=== PATIENT | male | born 1930 | race Caucasian/White ===

== ENCOUNTER 2018-05-04 15:02 | Inpatient (IN) | payer MEDICARE, OTHER, MEDICAID ==
[2018-05-04 15:39] LABS: ADD MAN DIFF? NO
[2018-05-04 15:44] LABS: WHITE BLOOD COUNT 16.7 10^3/ul (4.8-10.8)
[2018-05-04 15:44] LABS: BASOPHIL # 0.1 10^3/ul (0.0-0.1); BASOPHILS % 0.8 % (0.0-2.0); EOSINOPHILS # 0.2 10^3/ul (0.0-0.5); EOSINOPHILS % 1.3 % (0.0-7.0); HEMATOCRIT 40.5 % (42.0-52.0); HEMOGLOBIN 12.7 g/dl (14.0-18.0); LYMPHOCYTES # 1.3 10^3/ul (0.8-2.9); LYMPHOCYTES % 7.9 % (15.0-51.0); MEAN CORPUSCULAR HEMOGLOBIN 30.5 pg (29.0-33.0); MEAN CORPUSCULAR HGB CONC 31.4 g/dl (32.0-37.0); MEAN CORPUSCULAR VOLUME 97.1 fl (82.0-101.0); MEAN PLATELET VOLUME 11.8 fl (7.4-10.4); MONOCYTE # 1.2 10^3/ul (0.3-0.9); MONOCYTES % 7.2 % (0.0-11.0); NEUTROPHIL # 13.6 10^3/ul (1.6-7.5); NEUTROPHILS % 81.3 % (39.0-77.0); PLATELET COUNT 378 10^3/UL (140-415); RED BLOOD COUNT 4.17 10^6/ul (4.70-6.10); RED CELL DISTRIBUTION WIDTH 14.3 % (11.5-14.5)
[2018-05-04] MEDS: SOD CHLORIDE 0.9% 500 ML IV (16:00)
[2018-05-04 16:02] LABS: ALANINE AMINOTRANSFERASE 43 IU/L (13-69); ALBUMIN 3.5 g/dl (3.3-4.9); ALKALINE PHOSPHATASE 100 IU/L (42-121); ANION GAP 12 (5-13); ASPARTATE AMINO TRANSFERASE 64 IU/L (15-46); BILIRUBIN,INDIRECT 0.2 mg/dl (0-1.1); BILIRUBIN,TOTAL 0.2 mg/dl (0.2-1.3); CALCIUM 9.2 mg/dl (8.4-10.2); CARBON DIOXIDE 26 mmol/L (21-31); CHLORIDE 121 mmol/L (97-110); CREATININE 5.41 mg/dl (0.61-1.24); GLUCOSE 295 mg/dl (70-220); POTASSIUM 4.7 mmol/L (3.5-5.1); SODIUM 159 mmol/L (135-144)
[2018-05-04 16:10] LABS: BLOOD UREA NITROGEN 144 mg/dl (7-20)
[2018-05-04] MEDS: SODIUM CHLORIDE 0.9% 1L BAG IV* (17:12)
[2018-05-04] MEDS: CEFEPIME 2GM/50 ML (PMX) 50 ML IVPB (17:54)
[2018-05-04 17:59] LABS: ADD UMIC YES; UR ASCORBIC ACID 40 mg/dL (NEGATIVE); UR BACTERIA MANY /HPF (NONE SEEN); UR BILIRUBIN (Dip) NEGATIVE (NEGATIVE); UR BLOOD (Dip) 3+ mg/dL (NEGATIVE); UR CLARITY TURBID (CLEAR); UR COLOR YELLOW (YELLOW); UR GLUCOSE (Dip) NEGATIVE (NEGATIVE); UR KETONES (Dip) NEGATIVE (NEGATIVE); UR LEUKOCYTE ESTERASE (Dip) 3+ Leu/ul (NEGATIVE); UR NITRITE (Dip) NEGATIVE (NEGATIVE); UR RBC 142 /HPF (0-5); UR SPECIFIC GRAVITY (Dip) 1.012 (1.003-1.030); UR SQUAMOUS EPITHELIAL CELL FEW /HPF (FEW); UR TOTAL PROTEIN (Dip) 2+ mg/dl (NEGATIVE); UR UROBILINOGEN (Dip) NEGATIVE (NEGATIVE); UR WBC > 182 /HPF (0-5)
[2018-05-04] MEDS: VANCOMYCIN 1 GM (PMX) 250 ML IVPB (18:00)
[2018-05-04] MEDS: SOD CHLORIDE 0.9% 1,000 ML IV (18:12)
[2018-05-04] MEDS ORDERED: ONDANSETRON 4 MG INJ IV ×2 (18:30)
[2018-05-04] MEDS ORDERED: NACL 0.9% 3 ML SYG IV (18:30)
[2018-05-04] MEDS ORDERED: ACETAMINOPHEN 325 MG TAB PO (18:30)
[2018-05-04] MEDS ORDERED: ACETAMINOPHEN 650 MG SUPP PR (18:30)
[2018-05-04] MEDS ORDERED: hydrALAzine 20 MG INJ IV (19:00)
[2018-05-04] MEDS ORDERED: GLUCOSE GEL 15 GRAM TUBE PO ×2 (19:30)
[2018-05-04] MEDS ORDERED: GLUCAGON 1 MG INJ IM (19:30)
[2018-05-04] MEDS ORDERED: GLUCOSE GEL 15 GRAM TUBE BUCCAL (19:30)
[2018-05-04] MEDS ORDERED: DEXTROSE 50% 50 ML SYRINGE IV ×2 (19:30)
[2018-05-04] MEDS ORDERED: HEPARIN 5,000 UNIT/1 ML VIAL SC (21:00)
[2018-05-04] MEDS ORDERED: CEFEPIME 2GM/50 ML (PMX) 50 ML IVPB (21:00)
[2018-05-04] MEDS: INSULIN ASPART [NOVOLOG] 3 ML PEN SC (22:08)
[2018-05-05 00:05] LABS: LACTIC ACID 2.4 mmol/L (0.5-2.0)
[2018-05-05] MEDS: DEXTROSE 5% 1,000 ML IV ×4 (00:22→22:46)
[2018-05-05] MEDS: INSULIN ASPART [NOVOLOG] 3 ML PEN SC ×6 (02:13→20:46)
[2018-05-05 05:41] LABS: ADD MAN DIFF? NO
[2018-05-05 05:43] LABS: WHITE BLOOD COUNT 20.8 10^3/ul (4.8-10.8)
[2018-05-05 05:43] LABS: ABNORMAL IP MESSAGE 1; BASOPHIL # 0.1 10^3/ul (0.0-0.1); BASOPHILS % 0.4 % (0.0-2.0); EOSINOPHILS # 0.1 10^3/ul (0.0-0.5); EOSINOPHILS % 0.3 % (0.0-7.0); HEMATOCRIT 40.2 % (42.0-52.0); HEMOGLOBIN 12.5 g/dl (14.0-18.0); LYMPHOCYTES % 4.6 % (15.0-51.0); MEAN CORPUSCULAR HEMOGLOBIN 30.6 pg (29.0-33.0); MEAN CORPUSCULAR HGB CONC 31.1 g/dl (32.0-37.0); MEAN CORPUSCULAR VOLUME 98.3 fl (82.0-101.0); MONOCYTE # 1.5 10^3/ul (0.3-0.9); MONOCYTES % 7.3 % (0.0-11.0); NEUTROPHIL # 17.6 10^3/ul (1.6-7.5); NEUTROPHILS % 85.1 % (39.0-77.0); PLATELET COUNT 364 10^3/UL (140-415); POSITIVE DIFF @See below; RED BLOOD COUNT 4.09 10^6/ul (4.70-6.10); RED CELL DISTRIBUTION WIDTH 14.4 % (11.5-14.5)
[2018-05-05 06:27] LABS: ALANINE AMINOTRANSFERASE 39 IU/L (13-69); ALBUMIN 3.2 g/dl (3.3-4.9); ALBUMIN/GLOBULIN RATIO 0.96; ALKALINE PHOSPHATASE 92 IU/L (42-121); ANION GAP 9 (5-13); ASPARTATE AMINO TRANSFERASE 70 IU/L (15-46); BILIRUBIN,INDIRECT 0.2 mg/dl (0-1.1); BILIRUBIN,TOTAL 0.2 mg/dl (0.2-1.3); CALCIUM 8.9 mg/dl (8.4-10.2); CARBON DIOXIDE 24 mmol/L (21-31); CHLORIDE 125 mmol/L (97-110); CREATININE 5.12 mg/dl (0.61-1.24); GLUCOSE 300 mg/dl (70-220); MAGNESIUM 2.5 mg/dl (1.7-2.5); POTASSIUM 4.5 mmol/L (3.5-5.1); SODIUM 158 mmol/L (135-144); TOTAL PROTEIN 6.5 g/dl (6.1-8.1)
[2018-05-05] MEDS: PANTOPRAZOLE 40 MG INJ IV (06:40)
[2018-05-05 07:14] LABS: BLOOD UREA NITROGEN 144 mg/dl (7-20)
[2018-05-05 08:51] LABS: HEMOGLOBIN A1C 6.5 % (0-5.9)
[2018-05-05] MEDS ORDERED: ENOXAPARIN 30 MG/0.3 ML SYG SC (09:00)
[2018-05-05 10:47] LABS: OSMOLALITY 387 mOsm/kg (280-295)
[2018-05-05 10:56] LABS: ADD UMIC YES; UR ASCORBIC ACID 40 mg/dL (NEGATIVE); UR BACTERIA FEW /HPF (NONE SEEN); UR BILIRUBIN (Dip) NEGATIVE (NEGATIVE); UR BLOOD (Dip) 2+ mg/dL (NEGATIVE); UR BUDDING YEAST FEW /HPF (NONE SEEN); UR CLARITY TURBID (CLEAR); UR COLOR YELLOW (YELLOW); UR GLUCOSE (Dip) 1+ mg/dL (NEGATIVE); UR KETONES (Dip) NEGATIVE (NEGATIVE); UR LEUKOCYTE ESTERASE (Dip) 3+ Leu/ul (NEGATIVE); UR MUCUS FEW /HPF (NONE SEEN); UR NITRITE (Dip) NEGATIVE (NEGATIVE); UR NONSQUAMOUS EPITHELIAL CELL 6 /HPF (NONE SEEN); UR RBC 91 /HPF (0-5); UR SPECIFIC GRAVITY (Dip) 1.017 (1.003-1.030); UR TOTAL PROTEIN (Dip) 2+ mg/dl (NEGATIVE); UR UROBILINOGEN (Dip) NEGATIVE (NEGATIVE); UR WBC > 182 /HPF (0-5)
[2018-05-05 11:15] LABS: SODIUM,URINE RANDOM 18 mmol/L (30-90)
[2018-05-05 11:17] LABS: POTASSIUM,URINE RANDOM 58.2 mmol/L (25-125)
[2018-05-05] MEDS: INSULIN GLARGINE [LANTus] (100 UNITS/ML) SYG SC (11:22)
[2018-05-05 11:49] LABS: OSMOLALITY,URINE 447 mOsm/kg (250-1200)
[2018-05-05] MEDS ORDERED: VANCOMYCIN IV PER PHARMACY XX (13:30)
[2018-05-05] MEDS: CEFEPIME 1GM/50 ML IVPB (17:41)
[2018-05-05] MEDS: morphine SULFATE/PF (2 MG/2 ML) SYG IV (23:32)
[2018-05-06] MEDS: INSULIN ASPART [NOVOLOG] 3 ML PEN SC ×3 (02:20→08:40)
[2018-05-06] MEDS ORDERED: LORAZEPAM 4 MG/ML VIAL (05:05)
[2018-05-06] MEDS: LORAZEPAM 4 MG/ML VIAL IV ×2 (05:40→20:17)
[2018-05-06] MEDS: HALOPERIDOL 5 MG INJ IM (05:41)
[2018-05-06 05:53] LABS: ADD MAN DIFF? NO
[2018-05-06] MEDS: PANTOPRAZOLE 40 MG INJ IV (05:58)
[2018-05-06 06:00] LABS: ABNORMAL IP MESSAGE 1; BASOPHIL # 0.2 10^3/ul (0.0-0.1); BASOPHILS % 0.6 % (0.0-2.0); EOSINOPHILS # 0.3 10^3/ul (0.0-0.5); EOSINOPHILS % 1.3 % (0.0-7.0); HEMATOCRIT 35.7 % (42.0-52.0); HEMOGLOBIN 11.3 g/dl (14.0-18.0); LYMPHOCYTES # 1.5 10^3/ul (0.8-2.9); LYMPHOCYTES % 6.2 % (15.0-51.0); MEAN CORPUSCULAR HEMOGLOBIN 30.6 pg (29.0-33.0); MEAN CORPUSCULAR HGB CONC 31.7 g/dl (32.0-37.0); MEAN CORPUSCULAR VOLUME 96.7 fl (82.0-101.0); MEAN PLATELET VOLUME 12.2 fl (7.4-10.4); MONOCYTE # 1.3 10^3/ul (0.3-0.9); MONOCYTES % 5.4 % (0.0-11.0); NEUTROPHIL # 20.8 10^3/ul (1.6-7.5); NEUTROPHILS % 83.7 % (39.0-77.0); PLATELET COUNT 326 10^3/UL (140-415); POSITIVE DIFF @See below; RED BLOOD COUNT 3.69 10^6/ul (4.70-6.10); RED CELL DISTRIBUTION WIDTH 14.7 % (11.5-14.5)
[2018-05-06 06:00] LABS: WHITE BLOOD COUNT 24.8 10^3/ul (4.8-10.8)
[2018-05-06 06:08] LABS: AADO2 Arterial 189.4 mmHg (7.0-24.0); Allen Test ACCEPTAB; Arterial Blood Gas Oxygen Sat 98.7 mmHG (95.0-100.0); Arterial COHb 0.2 % (0.0-3.0); Arterial Fraction of Oxyhgb 98.3 % (93.0-99.0); Arterial HCO3 19.7 mmol/L (22.0-26.0); Arterial MetHb 0.2 % (0.0-1.5); Arterial pCO2 31.7 mmhg (35-45); MODE MASK - SIMPLE; Site Left Radial
[2018-05-06 06:20] LABS: VANCOMYCIN,RANDOM 7.5 ug/ml
[2018-05-06 06:23] LABS: ALBUMIN 3.1 g/dl (3.3-4.9); ANION GAP 13 (5-13); CALCIUM 8.8 mg/dl (8.4-10.2); CARBON DIOXIDE 25 mmol/L (21-31); CHLORIDE 117 mmol/L (97-110); CREATININE 4.05 mg/dl (0.61-1.24); GLUCOSE 223 mg/dl (70-220); MAGNESIUM 2.6 mg/dl (1.7-2.5); POTASSIUM 3.8 mmol/L (3.5-5.1); SODIUM 155 mmol/L (135-144)
[2018-05-06 06:43] LABS: BLOOD UREA NITROGEN 135 mg/dl (7-20)
[2018-05-06] MEDS: DEXTROSE 5% 1,000 ML IV ×2 (08:36→20:24)
[2018-05-06] MEDS: INSULIN GLARGINE [LANTus] (100 UNITS/ML) SYG SC (08:40)
[2018-05-06] MEDS ORDERED: VANCOMYCIN 1 GM 250 ML IVPB (09:00)
[2018-05-06] MEDS: Insulin NOVOLOG SS MODERATE Algorithm(NPO/TPN/ENTERAL FEEDS) SC ×4 (09:00→20:34)
[2018-05-06] MEDS: CEFEPIME 2GM/50 ML IVPB (10:11)
[2018-05-06] MEDS: VANCOMYCIN 1 GM 250 ML IVPB (11:13)
[2018-05-06] MEDS ORDERED: INSULIN ASPART [NOVOLOG] 3 ML PEN SC (13:00)
[2018-05-06] MEDS: CEFTRIAXONE 1 GM/50 ML (PMX) 50 ML IVPB (14:15)
[2018-05-06] MEDS: BALSAM PERU/CASTOR OIL 60 GM TUBE TOP (14:15)
[2018-05-06] MEDS: COLLAGENASE 5 GM (UD JAR) TOP (14:15)
[2018-05-06] MEDS ORDERED: LORAZEPAM 2 MG INJ IV (20:00)
[2018-05-07] MEDS: Insulin NOVOLOG SS MODERATE Algorithm(NPO/TPN/ENTERAL FEEDS) SC ×6 (01:57→21:00)
[2018-05-07] MEDS: METHYLPREDNISOLONE 125 MG INJ IV (03:16)
[2018-05-07] MEDS: DEXTROSE 5% 1,000 ML IV ×2 (03:16→12:42)
[2018-05-07 04:54] LABS: ADD MAN DIFF? NO
[2018-05-07 04:59] LABS: WHITE BLOOD COUNT 20.8 10^3/ul (4.8-10.8)
[2018-05-07 04:59] LABS: BASOPHIL # 0.1 10^3/ul (0.0-0.1); BASOPHILS % 0.6 % (0.0-2.0); EOSINOPHILS # 0.4 10^3/ul (0.0-0.5); HEMATOCRIT 33.8 % (42.0-52.0); HEMOGLOBIN 10.9 g/dl (14.0-18.0); LYMPHOCYTES # 1.2 10^3/ul (0.8-2.9); LYMPHOCYTES % 5.8 % (15.0-51.0); MEAN CORPUSCULAR HEMOGLOBIN 31.1 pg (29.0-33.0); MEAN CORPUSCULAR HGB CONC 32.2 g/dl (32.0-37.0); MEAN CORPUSCULAR VOLUME 96.3 fl (82.0-101.0); MONOCYTE # 0.7 10^3/ul (0.3-0.9); MONOCYTES % 3.6 % (0.0-11.0); NEUTROPHIL # 17.6 10^3/ul (1.6-7.5); NEUTROPHILS % 84.5 % (39.0-77.0); PLATELET COUNT 308 10^3/UL (140-415); RED BLOOD COUNT 3.51 10^6/ul (4.70-6.10); RED CELL DISTRIBUTION WIDTH 14.6 % (11.5-14.5)
[2018-05-07 05:20] LABS: ANION GAP 6 (5-13); BLOOD UREA NITROGEN 115 mg/dl (7-20); CALCIUM 8.6 mg/dl (8.4-10.2); CARBON DIOXIDE 24 mmol/L (21-31); CHLORIDE 122 mmol/L (97-110); CREATININE 2.69 mg/dl (0.61-1.24); GLUCOSE 181 mg/dl (70-220); MAGNESIUM 2.3 mg/dl (1.7-2.5); PHOSPHORUS 4.2 mg/dl (2.5-4.9); POTASSIUM 3.7 mmol/L (3.5-5.1); SODIUM 152 mmol/L (135-144)
[2018-05-07] MEDS: PANTOPRAZOLE 40 MG INJ IV (06:19)
[2018-05-07] MEDS: BALSAM PERU/CASTOR OIL 60 GM TUBE TOP (08:26)
[2018-05-07] MEDS: COLLAGENASE 5 GM (UD JAR) TOP (08:26)
[2018-05-07] MEDS: INSULIN GLARGINE [LANTus] (100 UNITS/ML) SYG SC (08:31)
[2018-05-07] MEDS: CEFTRIAXONE 1 GM/50 ML (PMX) 50 ML IVPB (12:34)
[2018-05-07] MEDS: ALBUTEROL/IPRATROPIUM (NEB) 3 ML AMP HHN ×2 (12:53→20:39)
[2018-05-07] MEDS: LORAZEPAM 4 MG/ML VIAL IV (20:42)
[2018-05-07] MEDS: HALOPERIDOL 5 MG INJ IM (23:53)
[2018-05-08] MEDS: Insulin NOVOLOG SS MODERATE Algorithm(NPO/TPN/ENTERAL FEEDS) SC ×6 (01:00→21:03)
[2018-05-08] MEDS: DEXTROSE 5% 1,000 ML IV ×3 (02:30→12:30)
[2018-05-08] MEDS: PANTOPRAZOLE 40 MG INJ IV (05:35)
[2018-05-08] MEDS: ALBUTEROL/IPRATROPIUM (NEB) 3 ML AMP HHN ×3 (08:22→20:34)
[2018-05-08] MEDS: COLLAGENASE 5 GM (UD JAR) TOP (08:41)
[2018-05-08] MEDS: BALSAM PERU/CASTOR OIL 60 GM TUBE TOP (08:47)
[2018-05-08] MEDS: INSULIN GLARGINE [LANTus] (100 UNITS/ML) SYG SC (08:54)
[2018-05-08] MEDS: LIDOCAINE 1% (MPF) 5 ML VIAL SC (11:30)
[2018-05-08 12:47] LABS: ADD MAN DIFF? NO
[2018-05-08 12:52] LABS: BASOPHIL # 0.1 10^3/ul (0.0-0.1); BASOPHILS % 0.3 % (0.0-2.0); EOSINOPHILS % 0.1 % (0.0-7.0); HEMATOCRIT 36.6 % (42.0-52.0); HEMOGLOBIN 11.6 g/dl (14.0-18.0); LYMPHOCYTES # 1.3 10^3/ul (0.8-2.9); LYMPHOCYTES % 6.4 % (15.0-51.0); MEAN CORPUSCULAR HEMOGLOBIN 30.4 pg (29.0-33.0); MEAN CORPUSCULAR HGB CONC 31.7 g/dl (32.0-37.0); MEAN CORPUSCULAR VOLUME 96.1 fl (82.0-101.0); MONOCYTE # 1.3 10^3/ul (0.3-0.9); MONOCYTES % 6.9 % (0.0-11.0); NEUTROPHIL # 15.9 10^3/ul (1.6-7.5); NEUTROPHILS % 81.8 % (39.0-77.0); PLATELET COUNT 397 10^3/UL (140-415); RED BLOOD COUNT 3.81 10^6/ul (4.70-6.10); RED CELL DISTRIBUTION WIDTH 14.8 % (11.5-14.5)
[2018-05-08 12:52] LABS: WHITE BLOOD COUNT 19.5 10^3/ul (4.8-10.8)
[2018-05-08 13:08] LABS: AMMONIA 12 umol/l (9-30)
[2018-05-08 13:09] LABS: ALANINE AMINOTRANSFERASE 58 IU/L (13-69); ALBUMIN 3.2 g/dl (3.3-4.9); ALBUMIN/GLOBULIN RATIO 0.96; ALKALINE PHOSPHATASE 91 IU/L (42-121); ANION GAP 12 (5-13); ASPARTATE AMINO TRANSFERASE 73 IU/L (15-46); BILIRUBIN,INDIRECT 0.1 mg/dl (0-1.1); BILIRUBIN,TOTAL 0.1 mg/dl (0.2-1.3); BLOOD UREA NITROGEN 86 mg/dl (7-20); CALCIUM 9.2 mg/dl (8.4-10.2); CARBON DIOXIDE 25 mmol/L (21-31); CHLORIDE 121 mmol/L (97-110); CREATININE 1.93 mg/dl (0.61-1.24); GLUCOSE 194 mg/dl (70-220); MAGNESIUM 2.2 mg/dl (1.7-2.5); POTASSIUM 3.6 mmol/L (3.5-5.1); SODIUM 158 mmol/L (135-144); TOTAL PROTEIN 6.5 g/dl (6.1-8.1)
[2018-05-08] MEDS: CEFTRIAXONE 1 GM/50 ML (PMX) 50 ML IVPB (15:15)
[2018-05-09] MEDS: DEXTROSE 5% 1,000 ML IV ×3 (01:07→15:42)
[2018-05-09] MEDS: Insulin NOVOLOG SS MODERATE Algorithm(NPO/TPN/ENTERAL FEEDS) SC ×3 (01:14→08:43)
[2018-05-09 05:38] LABS: ADD MAN DIFF? NO
[2018-05-09] MEDS: PANTOPRAZOLE 40 MG INJ IV (05:43)
[2018-05-09 05:45] LABS: BASOPHIL # 0.1 10^3/ul (0.0-0.1); BASOPHILS % 0.6 % (0.0-2.0); EOSINOPHILS # 0.2 10^3/ul (0.0-0.5); HEMATOCRIT 36.8 % (42.0-52.0); HEMOGLOBIN 11.6 g/dl (14.0-18.0); LYMPHOCYTES # 1.5 10^3/ul (0.8-2.9); LYMPHOCYTES % 9.4 % (15.0-51.0); MEAN CORPUSCULAR HEMOGLOBIN 30.9 pg (29.0-33.0); MEAN CORPUSCULAR HGB CONC 31.5 g/dl (32.0-37.0); MEAN CORPUSCULAR VOLUME 98.1 fl (82.0-101.0); MEAN PLATELET VOLUME 12.5 fl (7.4-10.4); MONOCYTE # 1.2 10^3/ul (0.3-0.9); MONOCYTES % 7.2 % (0.0-11.0); NEUTROPHIL # 12.3 10^3/ul (1.6-7.5); NEUTROPHILS % 77.2 % (39.0-77.0); PLATELET COUNT 345 10^3/UL (140-415); RED BLOOD COUNT 3.75 10^6/ul (4.70-6.10); RED CELL DISTRIBUTION WIDTH 14.6 % (11.5-14.5)
[2018-05-09 05:45] LABS: WHITE BLOOD COUNT 15.9 10^3/ul (4.8-10.8)
[2018-05-09 06:05] LABS: ANION GAP 14 (5-13); BLOOD UREA NITROGEN 79 mg/dl (7-20); CALCIUM 9.3 mg/dl (8.4-10.2); CARBON DIOXIDE 24 mmol/L (21-31); CHLORIDE 122 mmol/L (97-110); CREATININE 1.77 mg/dl (0.61-1.24); GLUCOSE 192 mg/dl (70-220); MAGNESIUM 2.1 mg/dl (1.7-2.5); PHOSPHORUS 3.9 mg/dl (2.5-4.9); SODIUM 160 mmol/L (135-144)
[2018-05-09] MEDS: ALBUTEROL/IPRATROPIUM (NEB) 3 ML AMP HHN ×3 (08:17→20:05)
[2018-05-09] MEDS: BALSAM PERU/CASTOR OIL 60 GM TUBE TOP (08:38)
[2018-05-09] MEDS: COLLAGENASE 5 GM (UD JAR) TOP (08:38)
[2018-05-09] MEDS: INSULIN GLARGINE [LANTus] (100 UNITS/ML) SYG SC ×2 (08:42→20:57)
[2018-05-09] MEDS: CEFTRIAXONE 1 GM/50 ML (PMX) 50 ML IVPB (11:19)
[2018-05-09] MEDS: INSULIN ASPART [NOVOLOG] 3 ML PEN SC ×2 (17:40→21:02)
[2018-05-09 20:38] LABS: SODIUM 148 mmol/L (135-144)
[2018-05-10] MEDS: INSULIN ASPART [NOVOLOG] 3 ML PEN SC ×6 (01:23→20:24)
[2018-05-10] MEDS: DEXTROSE 5% 1,000 ML IV ×4 (02:53→20:57)
[2018-05-10] MEDS: PANTOPRAZOLE 40 MG INJ IV (05:21)
[2018-05-10 05:35] LABS: ADD MAN DIFF? NO
[2018-05-10 05:45] LABS: ABNORMAL IP MESSAGE 1; BASOPHIL # 0.1 10^3/ul (0.0-0.1); BASOPHILS % 0.7 % (0.0-2.0); EOSINOPHILS # 0.4 10^3/ul (0.0-0.5); EOSINOPHILS % 2.3 % (0.0-7.0); LYMPHOCYTES # 1.5 10^3/ul (0.8-2.9); LYMPHOCYTES % 8.9 % (15.0-51.0); MEAN CORPUSCULAR HEMOGLOBIN 30.6 pg (29.0-33.0); MEAN CORPUSCULAR HGB CONC 32.4 g/dl (32.0-37.0); MEAN CORPUSCULAR VOLUME 94.7 fl (82.0-101.0); MEAN PLATELET VOLUME 12.1 fl (7.4-10.4); MONOCYTES % 5.8 % (0.0-11.0); NEUTROPHIL # 12.3 10^3/ul (1.6-7.5); NEUTROPHILS % 74.1 % (39.0-77.0); PLATELET COUNT 352 10^3/UL (140-415); POSITIVE DIFF @See below; RED BLOOD COUNT 3.59 10^6/ul (4.70-6.10); RED CELL DISTRIBUTION WIDTH 14.6 % (11.5-14.5)
[2018-05-10 05:45] LABS: WHITE BLOOD COUNT 16.6 10^3/ul (4.8-10.8)
[2018-05-10 05:58] LABS: AMMONIA 14 umol/l (9-30)
[2018-05-10 06:05] LABS: ANION GAP 11 (5-13); BLOOD UREA NITROGEN 64 mg/dl (7-20); CALCIUM 8.2 mg/dl (8.4-10.2); CARBON DIOXIDE 24 mmol/L (21-31); CHLORIDE 115 mmol/L (97-110); CREATININE 1.43 mg/dl (0.61-1.24); GLUCOSE 205 mg/dl (70-220); MAGNESIUM 1.7 mg/dl (1.7-2.5); PHOSPHORUS 3.1 mg/dl (2.5-4.9); POTASSIUM 3.7 mmol/L (3.5-5.1); SODIUM 150 mmol/L (135-144)
[2018-05-10 06:55] LABS: ANISOCYTOSIS 1+ (0-0); BAND NEUTROPHILS #M 0.3 10^3/ul (0.0-0.6); BAND NEUTROPHILS % (M) 2 % (0-4); BURR CELLS 1+ (0-0); EOSINOPHILS % (M) 2 % (0-7); LYMPHOCYTES #M 0.4 10^3/ul (0.8-2.9); LYMPHOCYTES % (M) 3 % (15-51); MICROCYTOSIS 1+ (0-0); MONOCYTE #M 1.3 10^3/ul (0.3-0.9); MONOCYTES % (M) 8 % (0-11); MYELOCYTES #M 0.6 10^3/ul (0.0-0.0); MYELOCYTES % (M) 4 % (0-0); PLATELET ESTIMATE NORMAL; PLATELET MORPHOLOGY COMMENT @See below; POIKILOCYTOSIS 1+ (0-0); POLYCHROMASIA 2+ (0-0); PROMYELOCYTES #M 0.1 10^3/ul (0-0); PROMYELOCYTES % (M) 1 % (0-0); REACTIVE LYMPHOCYTES #M 0.4 10^3/ul (0.0-0.0); REACTIVE LYMPHOCYTES% (M) 3 % (0-0); SEG NEUT #M 12.8 10^3/ul (1.6-7.5); SEGMENTED NEUTROPHILS (M) % 77 % (39-77); SMUDGE%M 2 % (0-0)
[2018-05-10] MEDS: COLLAGENASE 5 GM (UD JAR) TOP (08:38)
[2018-05-10] MEDS: BALSAM PERU/CASTOR OIL 60 GM TUBE TOP (08:39)
[2018-05-10] MEDS: ALBUTEROL/IPRATROPIUM (NEB) 3 ML AMP HHN ×3 (09:13→21:15)
[2018-05-10] MEDS: INSULIN GLARGINE [LANTus] (100 UNITS/ML) SYG SC ×2 (09:59→20:24)
[2018-05-10] MEDS: CEFTRIAXONE 1 GM/50 ML (PMX) 50 ML IVPB (11:47)
[2018-05-11] MEDS: INSULIN ASPART [NOVOLOG] 3 ML PEN SC ×6 (01:39→20:58)
[2018-05-11] MEDS: DEXTROSE 5% 1,000 ML IV ×2 (02:39→17:25)
[2018-05-11] MEDS: HALOPERIDOL 5 MG INJ IM (05:20)
[2018-05-11] MEDS: PANTOPRAZOLE 40 MG INJ IV (05:20)
[2018-05-11 06:23] LABS: WHITE BLOOD COUNT 22.9 10^3/ul (4.8-10.8)
[2018-05-11 06:23] LABS: ABNORMAL IP MESSAGE 1; HEMATOCRIT 35.9 % (42.0-52.0); HEMOGLOBIN 11.6 g/dl (14.0-18.0); MEAN CORPUSCULAR HEMOGLOBIN 30.3 pg (29.0-33.0); MEAN CORPUSCULAR HGB CONC 32.3 g/dl (32.0-37.0); MEAN CORPUSCULAR VOLUME 93.7 fl (82.0-101.0); MEAN PLATELET VOLUME 12.1 fl (7.4-10.4); NUCLEATED RED BLOOD CELLS% 0.1 /100WBC (0.0-0.0); PLATELET COUNT 352 10^3/UL (140-415); POSITIVE DIFF @See below; RED BLOOD COUNT 3.83 10^6/ul (4.70-6.10); RED CELL DISTRIBUTION WIDTH 14.4 % (11.5-14.5)
[2018-05-11 06:30] LABS: ADD MAN DIFF? YES
[2018-05-11 06:44] LABS: ANION GAP 13 (5-13); BLOOD UREA NITROGEN 54 mg/dl (7-20); CALCIUM 7.8 mg/dl (8.4-10.2); CARBON DIOXIDE 23 mmol/L (21-31); CHLORIDE 109 mmol/L (97-110); GLUCOSE 181 mg/dl (70-220); MAGNESIUM 1.7 mg/dl (1.7-2.5); PHOSPHORUS 2.7 mg/dl (2.5-4.9); POTASSIUM 3.3 mmol/L (3.5-5.1); SODIUM 145 mmol/L (135-144)
[2018-05-11 07:42] LABS: ANISOCYTOSIS 1+ (0-0); BAND NEUTROPHILS #M 0.9 10^3/ul (0.0-0.6); BAND NEUTROPHILS % (M) 4 % (0-4); BURR CELLS 1+ (0-0); EOSINOPHILS % (M) 1 % (0-7); ERYTHROBLAST% (NRBC) (M) 1 % (0-0); GIANT THROMBO% (M) 1 % (0-0); LYMPHOCYTES #M 2.5 10^3/ul (0.8-2.9); LYMPHOCYTES % (M) 11 % (15-51); METAMYELOCYTES #M 0.6 10^3/ul (0.0-0.0); METAMYELOCYTES %M 3 % (0-0); MICROCYTOSIS 1+ (0-0); MONOCYTE #M 0.9 10^3/ul (0.3-0.9); MONOCYTES % (M) 4 % (0-11); MYELOCYTES #M 1.6 10^3/ul (0.0-0.0); MYELOCYTES % (M) 7 % (0-0); PLATELET ESTIMATE NORMAL; POIKILOCYTOSIS 3+ (0-0); POLYCHROMASIA 2+ (0-0); REACTIVE LYMPHOCYTES #M 0.2 10^3/ul (0.0-0.0); REACTIVE LYMPHOCYTES% (M) 1 % (0-0); SEGMENTED NEUTROPHILS (M) % 69 % (39-77); SMUDGE%M 8 % (0-0); TEAR DROP CELLS 1+ (0-0)
[2018-05-11] MEDS: POTASSIUM CHLORIDE 20 MEQ POWDER FOR ORAL SOLN PO (07:51)
[2018-05-11] MEDS: ALBUTEROL/IPRATROPIUM (NEB) 3 ML AMP HHN ×3 (08:48→19:40)
[2018-05-11] MEDS: COLLAGENASE 5 GM (UD JAR) TOP (09:11)
[2018-05-11] MEDS: BALSAM PERU/CASTOR OIL 60 GM TUBE TOP (09:11)
[2018-05-11] MEDS: INSULIN GLARGINE [LANTus] (100 UNITS/ML) SYG SC ×3 (09:19→21:06)
[2018-05-11] MEDS: CEFTRIAXONE 1 GM/50 ML (PMX) 50 ML IVPB (11:34)
[2018-05-12] MEDS: INSULIN ASPART [NOVOLOG] 3 ML PEN SC ×6 (00:53→21:10)
[2018-05-12] MEDS: HALOPERIDOL 5 MG INJ IM (04:25)
[2018-05-12] MEDS: PANTOPRAZOLE 40 MG INJ IV (05:34)
[2018-05-12 05:36] LABS: ABNORMAL IP MESSAGE 1; HEMOGLOBIN 11.7 g/dl (14.0-18.0); MEAN CORPUSCULAR HEMOGLOBIN 30.9 pg (29.0-33.0); MEAN CORPUSCULAR HGB CONC 33.4 g/dl (32.0-37.0); MEAN CORPUSCULAR VOLUME 92.3 fl (82.0-101.0); MEAN PLATELET VOLUME 12.2 fl (7.4-10.4); NUCLEATED RED BLOOD CELLS% 0.1 /100WBC (0.0-0.0); PLATELET COUNT 352 10^3/UL (140-415); POSITIVE DIFF @See below; RED BLOOD COUNT 3.79 10^6/ul (4.70-6.10); RED CELL DISTRIBUTION WIDTH 14.7 % (11.5-14.5)
[2018-05-12 05:36] LABS: WHITE BLOOD COUNT 30.3 10^3/ul (4.8-10.8)
[2018-05-12] MEDS: ALBUTEROL/IPRATROPIUM (NEB) 3 ML AMP HHN ×4 (05:48→21:19)
[2018-05-12 05:52] LABS: ADD MAN DIFF? YES
[2018-05-12 06:10] LABS: ANION GAP 10 (5-13); BLOOD UREA NITROGEN 60 mg/dl (7-20); CALCIUM 7.9 mg/dl (8.4-10.2); CARBON DIOXIDE 22 mmol/L (21-31); CHLORIDE 108 mmol/L (97-110); CREATININE 1.63 mg/dl (0.61-1.24); GLUCOSE 206 mg/dl (70-220); MAGNESIUM 1.7 mg/dl (1.7-2.5); PHOSPHORUS 3.2 mg/dl (2.5-4.9); POTASSIUM 3.6 mmol/L (3.5-5.1); SODIUM 140 mmol/L (135-144)
[2018-05-12] MEDS: INSULIN GLARGINE [LANTus] (100 UNITS/ML) SYG SC ×2 (07:34→21:09)
[2018-05-12 08:15] LABS: ANISOCYTOSIS 1+ (0-0); BAND NEUTROPHILS #M 1.8 10^3/ul (0.0-0.6); BAND NEUTROPHILS % (M) 6 % (0-4); BASOPHIL #M 0.3 10^3/ul (0.0-0.0); BASOPHILS % (M) 1 % (0-2); BURR CELLS 1+ (0-0); EOSINOPHILS % (M) 3 % (0-7); ERYTHROBLAST% (NRBC) (M) 1 % (0-0); GIANT THROMBO% (M) 3 % (0-0); LYMPHOCYTES #M 2.7 10^3/ul (0.8-2.9); LYMPHOCYTES % (M) 9 % (15-51); METAMYELOCYTES #M 0.6 10^3/ul (0.0-0.0); METAMYELOCYTES %M 2 % (0-0); MONOCYTE #M 0.6 10^3/ul (0.3-0.9); MONOCYTES % (M) 2 % (0-11); MYELOCYTES #M 0.6 10^3/ul (0.0-0.0); MYELOCYTES % (M) 2 % (0-0); PLATELET ESTIMATE NORMAL; POIKILOCYTOSIS 2+ (0-0); POLYCHROMASIA 1+ (0-0); PROMYELOCYTES #M 0.3 10^3/ul (0-0); PROMYELOCYTES % (M) 1 % (0-0); REACTIVE LYMPHOCYTES #M 0.3 10^3/ul (0.0-0.0); REACTIVE LYMPHOCYTES% (M) 1 % (0-0); SEG NEUT #M 22.7 10^3/ul (1.6-7.5); SEGMENTED NEUTROPHILS (M) % 73 % (39-77); SMUDGE%M 3 % (0-0)
[2018-05-12] MEDS: DEXTROSE 5% 1,000 ML IV (08:25)
[2018-05-12] MEDS: COLLAGENASE 5 GM (UD JAR) TOP (08:53)
[2018-05-12] MEDS: BALSAM PERU/CASTOR OIL 60 GM TUBE TOP (08:53)
[2018-05-12] MEDS: CEFTRIAXONE 1 GM/50 ML (PMX) 50 ML IVPB (11:56)
[2018-05-12] MEDS ORDERED: VANCOMYCIN IV PER PHARMACY XX (12:30)
[2018-05-12] MEDS: MEROPENEM 500MG/50 ML (PMX) 50 ML IVPB ×2 (14:52→21:12)
[2018-05-12] MEDS: VANCOMYCIN 1.5 GM in SOD CHLORIDE 0.9% 250 ML IVPB (15:26)
[2018-05-12] MEDS: metroNIDAZOLE 500 MG TAB NGT ×2 (15:26→21:13)
[2018-05-12] MEDS: AMIODARONE 200 MG TAB PO (21:13)
[2018-05-12] MEDS: MEMANTINE 5 MG TAB PO (21:14)
[2018-05-13] MEDS: INSULIN ASPART [NOVOLOG] 3 ML PEN SC ×5 (01:15→17:53)
[2018-05-13 06:00] LABS: ANION GAP 11 (5-13); BLOOD UREA NITROGEN 92 mg/dl (7-20); CALCIUM 7.5 mg/dl (8.4-10.2); CARBON DIOXIDE 19 mmol/L (21-31); CHLORIDE 105 mmol/L (97-110); CREATININE 2.41 mg/dl (0.61-1.24); GLUCOSE 149 mg/dl (70-220); MAGNESIUM 1.8 mg/dl (1.7-2.5); PHOSPHORUS 3.9 mg/dl (2.5-4.9); POTASSIUM 4.3 mmol/L (3.5-5.1); SODIUM 135 mmol/L (135-144)
[2018-05-13 06:14] LABS: ABNORMAL IP MESSAGE 1; HEMATOCRIT 34.1 % (42.0-52.0); HEMOGLOBIN 11.5 g/dl (14.0-18.0); MEAN CORPUSCULAR HEMOGLOBIN 30.5 pg (29.0-33.0); MEAN CORPUSCULAR HGB CONC 33.7 g/dl (32.0-37.0); MEAN CORPUSCULAR VOLUME 90.5 fl (82.0-101.0); MEAN PLATELET VOLUME 13.3 fl (7.4-10.4); NUCLEATED RED BLOOD CELLS% 0.1 /100WBC (0.0-0.0); PLATELET COUNT 225 10^3/UL (140-415); POSITIVE DIFF @See below; RED BLOOD COUNT 3.77 10^6/ul (4.70-6.10); RED CELL DISTRIBUTION WIDTH 14.9 % (11.5-14.5)
[2018-05-13 06:14] LABS: WHITE BLOOD COUNT 38.9 10^3/ul (4.8-10.8)
[2018-05-13] MEDS: PANTOPRAZOLE 40 MG INJ IV (06:14)
[2018-05-13] MEDS: metroNIDAZOLE 500 MG TAB NGT (06:15)
[2018-05-13 06:23] LABS: ADD MAN DIFF? YES
[2018-05-13] MEDS: SOD CHLORIDE 0.9% 1,000 ML IV ×2 (07:36→09:34)
[2018-05-13] MEDS: MEROPENEM 500MG/50 ML (PMX) 50 ML IVPB ×2 (08:56→21:03)
[2018-05-13] MEDS: BALSAM PERU/CASTOR OIL 60 GM TUBE TOP (09:00)
[2018-05-13] MEDS ORDERED: VITAMIN A & D 5 GM OINT PACKET TOP (09:07)
[2018-05-13] MEDS: COLLAGENASE 5 GM (UD JAR) TOP (09:23)
[2018-05-13] MEDS: ALBUTEROL/IPRATROPIUM (NEB) 3 ML AMP HHN ×3 (09:36→20:02)
[2018-05-13 09:45] LABS: ANISOCYTOSIS 1+ (0-0); BAND NEUTROPHILS #M 3.1 10^3/ul (0.0-0.6); BAND NEUTROPHILS % (M) 8 % (0-4); BURR CELLS 1+ (0-0); GIANT THROMBO% (M) 1 % (0-0); LYMPHOCYTES #M 1.9 10^3/ul (0.8-2.9); LYMPHOCYTES % (M) 5 % (15-51); MICROCYTOSIS 1+ (0-0); MONOCYTE #M 1.1 10^3/ul (0.3-0.9); MONOCYTES % (M) 3 % (0-11); MYELOCYTES #M 2.3 10^3/ul (0.0-0.0); MYELOCYTES % (M) 6 % (0-0); PLATELET ESTIMATE NORMAL; POIKILOCYTOSIS 2+ (0-0); POLYCHROMASIA 2+ (0-0); PROMYELOCYTES #M 0.3 10^3/ul (0-0); PROMYELOCYTES % (M) 1 % (0-0); SEG NEUT #M 31.2 10^3/ul (1.6-7.5); SEGMENTED NEUTROPHILS (M) % 77 % (39-77); SMUDGE%M 5 % (0-0)
[2018-05-13] MEDS: INSULIN GLARGINE [LANTus] (100 UNITS/ML) SYG SC ×2 (13:24→20:58)
[2018-05-13] MEDS: MEMANTINE 5 MG TAB PO ×2 (14:37→20:50)
[2018-05-13] MEDS: ASPIRIN 81 MG TAB PO (14:37)
[2018-05-13] MEDS: AMIODARONE 200 MG TAB PO ×2 (14:38→20:51)
[2018-05-13] MEDS: VANCOMYCIN 750 MG (PMX) 250 ML IVPB (14:38)
[2018-05-14] MEDS: INSULIN ASPART [NOVOLOG] 3 ML PEN SC ×4 (01:32→17:12)
[2018-05-14] MEDS: HYDROmorphONE 1 MG/ML SYG IV ×2 (02:21→20:19)
[2018-05-14 05:16] LABS: ABNORMAL IP MESSAGE 1; HEMATOCRIT 28.5 % (42.0-52.0); HEMOGLOBIN 9.4 g/dl (14.0-18.0); MEAN CORPUSCULAR HEMOGLOBIN 30.2 pg (29.0-33.0); MEAN CORPUSCULAR VOLUME 91.6 fl (82.0-101.0); MEAN PLATELET VOLUME 12.1 fl (7.4-10.4); PLATELET COUNT 295 10^3/UL (140-415); POSITIVE DIFF @See below; RED BLOOD COUNT 3.11 10^6/ul (4.70-6.10); RED CELL DISTRIBUTION WIDTH 14.8 % (11.5-14.5)
[2018-05-14 05:16] LABS: WHITE BLOOD COUNT 21.6 10^3/ul (4.8-10.8)
[2018-05-14 05:45] LABS: ALBUMIN 2.3 g/dl (3.3-4.9); ANION GAP 10 (5-13); BLOOD UREA NITROGEN 87 mg/dl (7-20); CALCIUM 7.4 mg/dl (8.4-10.2); CARBON DIOXIDE 21 mmol/L (21-31); CHLORIDE 111 mmol/L (97-110); CREATININE 2.02 mg/dl (0.61-1.24); GLUCOSE 114 mg/dl (70-220); MAGNESIUM 1.9 mg/dl (1.7-2.5); PHOSPHORUS 4.4 mg/dl (2.5-4.9); POTASSIUM 3.1 mmol/L (3.5-5.1); SODIUM 142 mmol/L (135-144)
[2018-05-14 05:50] LABS: ADD MAN DIFF? YES
[2018-05-14] MEDS: PANTOPRAZOLE 40 MG INJ IV (05:55)
[2018-05-14] MEDS: ALBUTEROL/IPRATROPIUM (NEB) 3 ML AMP HHN ×3 (07:45→21:45)
[2018-05-14] MEDS: MEMANTINE 5 MG TAB PO ×2 (07:59→21:31)
[2018-05-14] MEDS: COLLAGENASE 5 GM (UD JAR) TOP (08:00)
[2018-05-14] MEDS: AMIODARONE 200 MG TAB PO ×2 (08:00→21:31)
[2018-05-14] MEDS: ASPIRIN 81 MG TAB PO (08:00)
[2018-05-14] MEDS: BALSAM PERU/CASTOR OIL 60 GM TUBE TOP (08:00)
[2018-05-14] MEDS: INSULIN GLARGINE [LANTus] (100 UNITS/ML) SYG SC ×2 (08:05→21:38)
[2018-05-14 09:25] LABS: ANISOCYTOSIS 2+ (0-0); BAND NEUTROPHILS #M 1.2 10^3/ul (0.0-0.6); BAND NEUTROPHILS % (M) 6 % (0-4); BASOPHIL #M 0.2 10^3/ul (0.0-0.0); BASOPHILS % (M) 1 % (0-2); BURR CELLS 1+ (0-0); GIANT THROMBO% (M) 1 % (0-0); LYMPHOCYTES #M 1.7 10^3/ul (0.8-2.9); LYMPHOCYTES % (M) 8 % (15-51); METAMYELOCYTES #M 0.2 10^3/ul (0.0-0.0); METAMYELOCYTES %M 1 % (0-0); MICROCYTOSIS 1+ (0-0); MONOCYTE #M 1.5 10^3/ul (0.3-0.9); MONOCYTES % (M) 7 % (0-11); MYELOCYTES #M 0.4 10^3/ul (0.0-0.0); MYELOCYTES % (M) 2 % (0-0); PLATELET ESTIMATE NORMAL; POIKILOCYTOSIS 2+ (0-0); POLYCHROMASIA 3+ (0-0); SEG NEUT #M 16.5 10^3/ul (1.6-7.5); SEGMENTED NEUTROPHILS (M) % 75 % (39-77); SMUDGE%M 1 % (0-0)
[2018-05-14] MEDS: POTASSIUM CHLORIDE 20 MEQ POWDER FOR ORAL SOLN NGT (09:50)
[2018-05-14] MEDS: MEROPENEM 500MG/50 ML (PMX) 50 ML IVPB ×2 (09:50→21:31)
[2018-05-14] MEDS: POTASSIUM CHLORIDE 100 ML IVPB ×2 (09:53→10:44)
[2018-05-14] MEDS: 1/2 NS + KCL 20 MEQ 1,000 ML IV ×2 (10:44→23:50)
[2018-05-15] MEDS: INSULIN ASPART [NOVOLOG] 3 ML PEN SC ×5 (00:33→23:45)
[2018-05-15] MEDS: HYDROmorphONE 1 MG/ML SYG IV ×3 (03:45→20:10)
[2018-05-15] MEDS: 1/2 NS + KCL 20 MEQ 1,000 ML IV ×3 (03:45→19:18)
[2018-05-15] MEDS: PANTOPRAZOLE 40 MG INJ IV (05:44)
[2018-05-15 06:12] LABS: WHITE BLOOD COUNT 12.1 10^3/ul (4.8-10.8)
[2018-05-15 06:12] LABS: ABNORMAL IP MESSAGE 1; HEMATOCRIT 28.2 % (42.0-52.0); HEMOGLOBIN 9.1 g/dl (14.0-18.0); MEAN CORPUSCULAR HEMOGLOBIN 30.2 pg (29.0-33.0); MEAN CORPUSCULAR HGB CONC 32.3 g/dl (32.0-37.0); MEAN CORPUSCULAR VOLUME 93.7 fl (82.0-101.0); MEAN PLATELET VOLUME 11.7 fl (7.4-10.4); PLATELET COUNT 322 10^3/UL (140-415); POSITIVE DIFF @See below; RED BLOOD COUNT 3.01 10^6/ul (4.70-6.10); RED CELL DISTRIBUTION WIDTH 14.9 % (11.5-14.5)
[2018-05-15 06:32] LABS: ALBUMIN 2.3 g/dl (3.3-4.9); ANION GAP 4 (5-13); BLOOD UREA NITROGEN 54 mg/dl (7-20); CALCIUM 7.6 mg/dl (8.4-10.2); CARBON DIOXIDE 23 mmol/L (21-31); CHLORIDE 118 mmol/L (97-110); CREATININE 1.09 mg/dl (0.61-1.24); GLUCOSE 127 mg/dl (70-220); MAGNESIUM 1.8 mg/dl (1.7-2.5); PHOSPHORUS 2.7 mg/dl (2.5-4.9); POTASSIUM 3.9 mmol/L (3.5-5.1); SODIUM 145 mmol/L (135-144)
[2018-05-15 06:44] LABS: ADD MAN DIFF? YES
[2018-05-15] MEDS: ALBUTEROL/IPRATROPIUM (NEB) 3 ML AMP HHN ×3 (08:00→20:51)
[2018-05-15] MEDS: BALSAM PERU/CASTOR OIL 60 GM TUBE TOP (08:13)
[2018-05-15] MEDS: COLLAGENASE 5 GM (UD JAR) TOP (08:13)
[2018-05-15] MEDS: ASPIRIN 81 MG TAB PO (08:14)
[2018-05-15] MEDS: AMIODARONE 200 MG TAB PO ×2 (08:14→20:07)
[2018-05-15] MEDS: MEMANTINE 5 MG TAB PO ×2 (08:14→20:07)
[2018-05-15] MEDS: INSULIN GLARGINE [LANTus] (100 UNITS/ML) SYG SC ×2 (08:17→20:28)
[2018-05-15 09:32] LABS: ANISOCYTOSIS 1+ (0-0); BAND NEUTROPHILS #M 0.4 10^3/ul (0.0-0.6); BAND NEUTROPHILS % (M) 4 % (0-4); EOSINOPHILS % (M) 1 % (0-7); GIANT THROMBO% (M) 1 % (0-0); LYMPHOCYTES #M 0.8 10^3/ul (0.8-2.9); LYMPHOCYTES % (M) 7 % (15-51); METAMYELOCYTES #M 0.2 10^3/ul (0.0-0.0); METAMYELOCYTES %M 2 % (0-0); MICROCYTOSIS 1+ (0-0); MONOCYTE #M 0.4 10^3/ul (0.3-0.9); MONOCYTES % (M) 4 % (0-11); MYELOCYTES #M 0.7 10^3/ul (0.0-0.0); MYELOCYTES % (M) 6 % (0-0); PLATELET ESTIMATE NORMAL; POLYCHROMASIA 1+ (0-0); REACTIVE LYMPHOCYTES #M 0.1 10^3/ul (0.0-0.0); REACTIVE LYMPHOCYTES% (M) 1 % (0-0); SEG NEUT #M 9.1 10^3/ul (1.6-7.5); SEGMENTED NEUTROPHILS (M) % 75 % (39-77); SMUDGE%M 4 % (0-0)
[2018-05-15] MEDS: MEROPENEM 500MG/50 ML (PMX) 50 ML IVPB ×2 (10:07→20:07)
[2018-05-15] MEDS: VANCOMYCIN 750 MG (PMX) 250 ML IVPB (14:18)
[2018-05-16] MEDS: HALOPERIDOL 5 MG INJ IM (00:35)
[2018-05-16] MEDS: HYDROmorphONE 0.5 MG/0.5 ML SYG IV (00:36)
[2018-05-16] MEDS: HYDROmorphONE 1 MG/ML SYG IV ×3 (03:13→14:34)
[2018-05-16] MEDS: PANTOPRAZOLE 40 MG INJ IV (05:36)
[2018-05-16 05:39] LABS: ADD MAN DIFF? NO
[2018-05-16 05:41] LABS: BASOPHIL # 0.1 10^3/ul (0.0-0.1); BASOPHILS % 0.5 % (0.0-2.0); EOSINOPHILS # 0.3 10^3/ul (0.0-0.5); EOSINOPHILS % 1.9 % (0.0-7.0); HEMATOCRIT 27.8 % (42.0-52.0); HEMOGLOBIN 9.1 g/dl (14.0-18.0); LYMPHOCYTES # 1.4 10^3/ul (0.8-2.9); LYMPHOCYTES % 10.7 % (15.0-51.0); MEAN CORPUSCULAR HEMOGLOBIN 30.7 pg (29.0-33.0); MEAN CORPUSCULAR HGB CONC 32.7 g/dl (32.0-37.0); MEAN CORPUSCULAR VOLUME 93.9 fl (82.0-101.0); MEAN PLATELET VOLUME 11.4 fl (7.4-10.4); MONOCYTE # 1.3 10^3/ul (0.3-0.9); MONOCYTES % 9.6 % (0.0-11.0); NEUTROPHIL # 9.5 10^3/ul (1.6-7.5); NEUTROPHILS % 72.7 % (39.0-77.0); PLATELET COUNT 333 10^3/UL (140-415); RED BLOOD COUNT 2.96 10^6/ul (4.70-6.10); RED CELL DISTRIBUTION WIDTH 15.2 % (11.5-14.5)
[2018-05-16 05:41] LABS: WHITE BLOOD COUNT 13.1 10^3/ul (4.8-10.8)
[2018-05-16] MEDS: INSULIN ASPART [NOVOLOG] 3 ML PEN SC ×4 (05:41→23:38)
[2018-05-16 06:06] LABS: ALBUMIN 2.3 g/dl (3.3-4.9); ANION GAP 5 (5-13); BLOOD UREA NITROGEN 38 mg/dl (7-20); CALCIUM 7.4 mg/dl (8.4-10.2); CARBON DIOXIDE 23 mmol/L (21-31); CHLORIDE 119 mmol/L (97-110); CREATININE 0.88 mg/dl (0.61-1.24); GLUCOSE 148 mg/dl (70-220); MAGNESIUM 1.7 mg/dl (1.7-2.5); PHOSPHORUS 2.2 mg/dl (2.5-4.9); POTASSIUM 4.2 mmol/L (3.5-5.1); SODIUM 147 mmol/L (135-144)
[2018-05-16] MEDS: ALBUTEROL/IPRATROPIUM (NEB) 3 ML AMP HHN ×3 (08:21→20:22)
[2018-05-16] MEDS: MEMANTINE 5 MG TAB PO ×2 (08:42→21:07)
[2018-05-16] MEDS: ASPIRIN 81 MG TAB PO (08:42)
[2018-05-16] MEDS: AMIODARONE 200 MG TAB PO ×2 (08:42→21:07)
[2018-05-16] MEDS: MEROPENEM 500MG/50 ML (PMX) 50 ML IVPB ×2 (08:42→21:08)
[2018-05-16] MEDS: COLLAGENASE 5 GM (UD JAR) TOP (08:42)
[2018-05-16] MEDS: BALSAM PERU/CASTOR OIL 60 GM TUBE TOP (08:44)
[2018-05-16] MEDS: INSULIN GLARGINE [LANTus] (100 UNITS/ML) SYG SC ×2 (10:11→21:21)
[2018-05-16] MEDS: 1/2 NS + KCL 20 MEQ 1,000 ML IV (13:06)
[2018-05-16 13:47] LABS: PROCALCITONIN 1.86 ng/mL (<0.10)
[2018-05-16] MEDS ORDERED: RISPERIDONE (1 MG/ML PO SYG) PO (15:30)
[2018-05-16] MEDS: RISPERIDONE (1 MG/ML PO SYG) NGT ×2 (15:30→21:07)
[2018-05-16] MEDS: VALPROIC ACID LIQUID CUP 250 MG/5 ML CUP PO (21:06)
[2018-05-16] MEDS: QUETIAPINE 25 MG TAB NGT (21:06)
[2018-05-17] MEDS: PANTOPRAZOLE 40 MG INJ IV (05:46)
[2018-05-17 05:50] LABS: ADD MAN DIFF? NO
[2018-05-17 05:51] LABS: WHITE BLOOD COUNT 11.9 10^3/ul (4.8-10.8)
[2018-05-17 05:51] LABS: ABNORMAL IP MESSAGE 1; BASOPHIL # 0.1 10^3/ul (0.0-0.1); BASOPHILS % 0.4 % (0.0-2.0); EOSINOPHILS # 0.3 10^3/ul (0.0-0.5); EOSINOPHILS % 2.4 % (0.0-7.0); HEMATOCRIT 28.2 % (42.0-52.0); HEMOGLOBIN 8.9 g/dl (14.0-18.0); LYMPHOCYTES # 1.3 10^3/ul (0.8-2.9); MEAN CORPUSCULAR HEMOGLOBIN 29.7 pg (29.0-33.0); MEAN CORPUSCULAR HGB CONC 31.6 g/dl (32.0-37.0); MEAN PLATELET VOLUME 11.1 fl (7.4-10.4); MONOCYTES % 8.7 % (0.0-11.0); NEUTROPHIL # 8.6 10^3/ul (1.6-7.5); NEUTROPHILS % 72.4 % (39.0-77.0); PLATELET COUNT 342 10^3/UL (140-415); POSITIVE DIFF @See below
[2018-05-17] MEDS: INSULIN ASPART [NOVOLOG] 3 ML PEN SC ×3 (05:56→17:31)
[2018-05-17 06:31] LABS: ANION GAP 4 (5-13); BLOOD UREA NITROGEN 24 mg/dl (7-20); CALCIUM 7.6 mg/dl (8.4-10.2); CARBON DIOXIDE 24 mmol/L (21-31); CHLORIDE 118 mmol/L (97-110); GLUCOSE 137 mg/dl (70-220); MAGNESIUM 1.6 mg/dl (1.7-2.5); PHOSPHORUS 2.3 mg/dl (2.5-4.9); SODIUM 146 mmol/L (135-144)
[2018-05-17 06:34] LABS: POTASSIUM 4.2 mmol/L (3.5-5.1)
[2018-05-17 08:18] LABS: ANISOCYTOSIS 1+ (0-0); BAND NEUTROPHILS #M 0.9 10^3/ul (0.0-0.6); BAND NEUTROPHILS % (M) 8 % (0-4); LYMPHOCYTES #M 2.1 10^3/ul (0.8-2.9); LYMPHOCYTES % (M) 18 % (15-51); MICROCYTOSIS 1+ (0-0); MONOCYTE #M 0.2 10^3/ul (0.3-0.9); MONOCYTES % (M) 2 % (0-11); MYELOCYTES #M 0.5 10^3/ul (0.0-0.0); MYELOCYTES % (M) 5 % (0-0); PLATELET ESTIMATE NORMAL; POLYCHROMASIA 2+ (0-0); REACTIVE LYMPHOCYTES #M 0.1 10^3/ul (0.0-0.0); REACTIVE LYMPHOCYTES% (M) 1 % (0-0); SEGMENTED NEUTROPHILS (M) % 66 % (39-77); SMUDGE%M 6 % (0-0)
[2018-05-17] MEDS: ALBUTEROL/IPRATROPIUM (NEB) 3 ML AMP HHN ×2 (08:20→13:37)
[2018-05-17] MEDS: COLLAGENASE 5 GM (UD JAR) TOP (09:00)
[2018-05-17] MEDS: MEROPENEM 500MG/50 ML (PMX) 50 ML IVPB (09:00)
[2018-05-17] MEDS: RISPERIDONE (1 MG/ML PO SYG) NGT (09:01)
[2018-05-17] MEDS: ASPIRIN 81 MG TAB PO (09:01)
[2018-05-17] MEDS: VALPROIC ACID LIQUID CUP 250 MG/5 ML CUP PO (09:01)
[2018-05-17] MEDS: MEMANTINE 5 MG TAB PO (09:01)
[2018-05-17] MEDS: BALSAM PERU/CASTOR OIL 60 GM TUBE TOP (09:02)
[2018-05-17] MEDS: AMIODARONE 200 MG TAB PO (09:02)
[2018-05-17] MEDS: INSULIN GLARGINE [LANTus] (100 UNITS/ML) SYG SC (09:19)
[2018-05-17 15:39] LABS: VANCOMYCIN,TROUGH < 5.0 ug/ml (10.0-20.0)
[2018-05-17] MEDS: VANCOMYCIN 750 MG (PMX) 250 ML IVPB (15:47)
[2018-05-18] MEDS ORDERED: VANCOMYCIN 1 GM 250 ML IVPB (10:00)
== END 2018-05-17 20:43 | DRG 871 ==
LOC: E/R 15:02 → 6WM 18:12
DX: A41.9 Sepsis, unspecified organism (principal); G92 Toxic encephalopathy; L89.323 Pressure ulcer of left buttock, stage 3; L89.313 Pressure ulcer of right buttock, stage 3; N17.9 Acute kidney failure, unspecified; E87.0 Hyperosmolality and hypernatremia; N39.0 Urinary tract infection, site not specified; E87.2 Acidosis; K56.7 Ileus, unspecified; N13.8 Other obstructive and reflux uropathy; E86.0 Dehydration; G30.9 Alzheimer's disease, unspecified; F02.80 Dementia in other diseases classified elsewhere, unspecified severity, without behavioral disturbance, psychotic disturbance, mood disturbance, and anxiety; E11.9 Type 2 diabetes mellitus without complications; I48.91 Unspecified atrial fibrillation; I10 Essential (primary) hypertension; F29 Unspecified psychosis not due to a substance or known physiological condition; R65.20 Severe sepsis without septic shock; R31.9 Hematuria, unspecified; J44.9 Chronic obstructive pulmonary disease, unspecified; B96.20 Unspecified Escherichia coli [E. coli] as the cause of diseases classified elsewhere; E87.6 Hypokalemia; K52.9 Noninfective gastroenteritis and colitis, unspecified; N40.1 Benign prostatic hyperplasia with lower urinary tract symptoms; L89.620 Pressure ulcer of left heel, unstageable; L89.610 Pressure ulcer of right heel, unstageable
CPT/HCPCS: 36415; 36600; 70450; 71045; 74176; 76775; 80048; 80053; 80069; 80202; 81001; 82140; 82540; 82803; 82962; 83036; 83605; 83735; 83930; 83935; 84100; 84133; 84145; 84295; 84300; 84443; 85025; 86850; 86900; 86901; 87040; 87075; 87081; 87086; 90686; 92526; 92610; 93306; 94640; 94664; 96374; 96375; 99285-25

== ENCOUNTER 2018-07-05 16:13 | Day surgery (SDC) | payer OTHER, MEDICARE ==
[2018-07-05 17:53] LABS: ADD MAN DIFF? NO
[2018-07-05 17:54] LABS: BASOPHILS % 0.1 % (0.0-2.0); HEMATOCRIT 41.9 % (42.0-52.0); HEMOGLOBIN 12.8 g/dl (14.0-18.0); LYMPHOCYTES # 0.9 10^3/ul (0.8-2.9); LYMPHOCYTES % 12.7 % (15.0-51.0); MEAN CORPUSCULAR HEMOGLOBIN 28.5 pg (29.0-33.0); MEAN CORPUSCULAR HGB CONC 30.5 g/dl (32.0-37.0); MEAN CORPUSCULAR VOLUME 93.3 fl (82.0-101.0); MEAN PLATELET VOLUME 10.8 fl (7.4-10.4); MONOCYTE # 0.5 10^3/ul (0.3-0.9); MONOCYTES % 6.3 % (0.0-11.0); NEUTROPHIL # 5.9 10^3/ul (1.6-7.5); NEUTROPHILS % 79.6 % (39.0-77.0); PLATELET COUNT 294 10^3/UL (140-415); RED BLOOD COUNT 4.49 10^6/ul (4.70-6.10); RED CELL DISTRIBUTION WIDTH 16.2 % (11.5-14.5)
[2018-07-05 17:54] LABS: WHITE BLOOD COUNT 7.4 10^3/ul (4.8-10.8)
[2018-07-05 18:14] LABS: INR 1.06; PARTIAL THROMBOPLASTIN TIME 25.7 Sec (23.0-35.0); PROTIME 13.9 Sec (11.9-14.9); PT RATIO 1.1
[2018-07-05 18:15] LABS: ALANINE AMINOTRANSFERASE 22 IU/L (13-69); ALBUMIN/GLOBULIN RATIO 0.96; ALKALINE PHOSPHATASE 70 IU/L (42-121); ANION GAP 9 (5-13); ASPARTATE AMINO TRANSFERASE 17 IU/L (15-46); BILIRUBIN,INDIRECT 0.4 mg/dl (0-1.1); BILIRUBIN,TOTAL 0.4 mg/dl (0.2-1.3); BLOOD UREA NITROGEN 24 mg/dl (7-20); CALCIUM 8.8 mg/dl (8.4-10.2); CARBON DIOXIDE 23 mmol/L (21-31); CHLORIDE 104 mmol/L (97-110); CREATININE 0.48 mg/dl (0.61-1.24); GLUCOSE 128 mg/dl (70-220); POTASSIUM 4.5 mmol/L (3.5-5.1); SODIUM 136 mmol/L (135-144); TOTAL PROTEIN 6.1 g/dl (6.1-8.1)
[2018-07-05] MEDS ORDERED: MIDAZOLAM 1 MG/ML 2 ML INJ (18:17)
[2018-07-05] MEDS ORDERED: LABETALOL HCL 20MG INJ IV (18:30)
[2018-07-05] MEDS ORDERED: IPRATROPIUM (NEB) 0.5 MG/2.5 ML AMP HHN (18:30)
[2018-07-05] MEDS ORDERED: ALBUTEROL 0.083% (NEB) 2.5 MG/3 ML AMP HHN (18:30)
[2018-07-05] MEDS ORDERED: DIPHENHYDRAMINE 50 MG INJ IV (18:30)
[2018-07-05] MEDS ORDERED: EPHEDrine SULFATE 50 MG/5 ML SYG IV (18:30)
[2018-07-05] MEDS ORDERED: LORAZEPAM 2 MG INJ IV (18:30)
[2018-07-05] MEDS ORDERED: FENTAnyl 50 MCG/ML VIAL IV (18:30)
[2018-07-05] MEDS ORDERED: ONDANSETRON 4 MG INJ IV (18:30)
[2018-07-05] MEDS ORDERED: METOCLOPRAMIDE 10 MG INJ IV (18:30)
[2018-07-05] MEDS ORDERED: morphine (1 MG/ML) 10ML SYRINGE IV (18:30)
[2018-07-05] MEDS ORDERED: hydrALAzine 20 MG INJ IV (18:30)
[2018-07-05] MEDS ORDERED: PROPOFOL 20 ML (18:33)
[2018-07-05] MEDS ORDERED: CEFAZOLIN 1 GM/50 ML (PMX) 50 ML IVPB (18:58)
== END 2018-07-05 20:45 ==
LOC: GIL 16:13
DX: R13.14 Dysphagia, pharyngoesophageal phase (principal); E11.9 Type 2 diabetes mellitus without complications; I12.9 Hypertensive chronic kidney disease with stage 1 through stage 4 chronic kidney disease, or unspecified chronic kidney disease; N18.9 Chronic kidney disease, unspecified; I73.9 Peripheral vascular disease, unspecified; G30.9 Alzheimer's disease, unspecified; F02.80 Dementia in other diseases classified elsewhere, unspecified severity, without behavioral disturbance, psychotic disturbance, mood disturbance, and anxiety; J44.9 Chronic obstructive pulmonary disease, unspecified; I48.91 Unspecified atrial fibrillation
CPT/HCPCS: 43246; 80053; 85025; 85610; 85730

== ENCOUNTER 2018-08-15 19:55 | Inpatient (IN) | payer MEDICARE, OTHER ==
[2018-08-15] MEDS: SODIUM CHLORIDE 0.9% 1L BAG IV* (20:23)
[2018-08-15 20:29] LABS: ABNORMAL IP MESSAGE 1; HEMATOCRIT 36.8 % (42.0-52.0); HEMOGLOBIN 11.3 g/dl (14.0-18.0); MEAN CORPUSCULAR HEMOGLOBIN 27.8 pg (29.0-33.0); MEAN CORPUSCULAR HGB CONC 30.7 g/dl (32.0-37.0); MEAN CORPUSCULAR VOLUME 90.6 fl (82.0-101.0); MEAN PLATELET VOLUME 11.1 fl (7.4-10.4); PLATELET COUNT 481 10^3/UL (140-415); POSITIVE DIFF @See below; RED BLOOD COUNT 4.06 10^6/ul (4.70-6.10); RED CELL DISTRIBUTION WIDTH 16.4 % (11.5-14.5)
[2018-08-15 20:29] LABS: WHITE BLOOD COUNT 20.3 10^3/ul (4.8-10.8)
[2018-08-15 20:32] LABS: ADD MAN DIFF? YES
[2018-08-15] MEDS: ACETAMINOPHEN 650MG/20.3ML CUP NGT (20:35)
[2018-08-15] MEDS: CEFEPIME 2GM/50 ML (PMX) 50 ML IVPB (20:35)
[2018-08-15 20:54] LABS: ALANINE AMINOTRANSFERASE 15 IU/L (13-69); ALBUMIN 2.9 g/dl (3.3-4.9); ALBUMIN/GLOBULIN RATIO 0.78; ALKALINE PHOSPHATASE 86 IU/L (42-121); ANION GAP 4 (5-13); ASPARTATE AMINO TRANSFERASE 23 IU/L (15-46); BILIRUBIN,INDIRECT 0.4 mg/dl (0-1.1); BILIRUBIN,TOTAL 0.4 mg/dl (0.2-1.3); BLOOD UREA NITROGEN 26 mg/dl (7-20); CALCIUM 8.6 mg/dl (8.4-10.2); CARBON DIOXIDE 29 mmol/L (21-31); CHLORIDE 115 mmol/L (97-110); CREATININE 0.58 mg/dl (0.61-1.24); GLUCOSE 219 mg/dl (70-220); SODIUM 148 mmol/L (135-144); TOTAL PROTEIN 6.6 g/dl (6.1-8.1)
[2018-08-15] MEDS: VANCOMYCIN 1 GM (PMX) 250 ML IVPB (21:06)
[2018-08-15 21:10] LABS: TROPONIN-I 0.179 ng/ml (0.000-0.120)
[2018-08-15 21:11] LABS: INR 1.19; PROTIME 15.2 Sec (11.9-14.9); PT RATIO 1.2
[2018-08-15 21:12] LABS: PARTIAL THROMBOPLASTIN TIME 30.5 Sec (23.0-35.0)
[2018-08-15 21:34] LABS: ADD UMIC YES; UR ASCORBIC ACID 40 mg/dL (NEGATIVE); UR BILIRUBIN (Dip) NEGATIVE (NEGATIVE); UR BLOOD (Dip) 3+ mg/dL (NEGATIVE); UR CLARITY CLOUDY (CLEAR); UR COLOR AMBER (YELLOW); UR GLUCOSE (Dip) NEGATIVE (NEGATIVE); UR KETONES (Dip) NEGATIVE (NEGATIVE); UR LEUKOCYTE ESTERASE (Dip) 2+ Leu/ul (NEGATIVE); UR NITRITE (Dip) NEGATIVE (NEGATIVE); UR RBC > 182 /HPF (0-5); UR SPECIFIC GRAVITY (Dip) 1.025 (1.003-1.030); UR SQUAMOUS EPITHELIAL CELL MANY /HPF (FEW); UR TOTAL PROTEIN (Dip) 2+ mg/dl (NEGATIVE); UR UROBILINOGEN (Dip) 1+ mg/dL (NEGATIVE); UR WBC > 182 /HPF (0-5)
[2018-08-15 21:35] LABS: UR BUDDING YEAST MODERATE /HPF (NONE SEEN)
[2018-08-15 21:43] LABS: ANISOCYTOSIS 2+ (0-0); BAND NEUTROPHILS #M 0.8 10^3/ul (0.0-0.6); BAND NEUTROPHILS % (M) 4 % (0-4); LYMPHOCYTES #M 1.4 10^3/ul (0.8-2.9); LYMPHOCYTES % (M) 7 % (15-51); METAMYELOCYTES #M 0.2 10^3/ul (0.0-0.0); METAMYELOCYTES %M 1 % (0-0); MICROCYTOSIS 2+ (0-0); MONOCYTES % (M) 5 % (0-11); MYELOCYTES #M 0.4 10^3/ul (0.0-0.0); MYELOCYTES % (M) 2 % (0-0); PLATELET ESTIMATE INCREASED; POIKILOCYTOSIS 1+ (0-0); POLYCHROMASIA 3+ (0-0); SEG NEUT #M 16.4 10^3/ul (1.6-7.5); SEGMENTED NEUTROPHILS (M) % 80 % (39-77)
[2018-08-15 21:55] LABS: ERYTHROCYTE SEDIMENTATION RATE 115 mm/Hr (0-20)
[2018-08-15] MEDS ORDERED: VANCOMYCIN IV PER PHARMACY XX (23:00)
[2018-08-15] MEDS ORDERED: NACL 0.9% 3 ML SYG IV (23:00)
[2018-08-15] MEDS ORDERED: ACETAMINOPHEN 325 MG TAB PO (23:00)
[2018-08-15] MEDS ORDERED: ONDANSETRON 4 MG INJ IV ×2 (23:00)
[2018-08-15 23:41] LABS: CREATINE KINASE 53 IU/L (23-200)
[2018-08-15] MEDS: SOD CHLORIDE 0.9% 1,000 ML IV (23:46)
[2018-08-15 23:55] LABS: CK INDEX 1.1; CK-MB 0.57 ng/ml (0.0-2.4)
[2018-08-15 23:56] LABS: TROPONIN-I 0.184 ng/ml (0.000-0.120)
[2018-08-16 05:55] LABS: WHITE BLOOD COUNT 20.7 10^3/ul (4.8-10.8)
[2018-08-16 05:55] LABS: ABNORMAL IP MESSAGE 1; HEMATOCRIT 34.2 % (42.0-52.0); HEMOGLOBIN 10.1 g/dl (14.0-18.0); MEAN CORPUSCULAR HGB CONC 29.5 g/dl (32.0-37.0); MEAN CORPUSCULAR VOLUME 94.7 fl (82.0-101.0); MEAN PLATELET VOLUME 11.2 fl (7.4-10.4); PLATELET COUNT 399 10^3/UL (140-415); POSITIVE DIFF @See below; RED BLOOD COUNT 3.61 10^6/ul (4.70-6.10); RED CELL DISTRIBUTION WIDTH 16.2 % (11.5-14.5)
[2018-08-16 05:59] LABS: ADD MAN DIFF? YES
[2018-08-16] MEDS: CEFEPIME 2GM/50 ML (PMX) 50 ML IVPB ×3 (06:00→21:32)
[2018-08-16] MEDS ORDERED: PENDING SANTYL ORDER FOR WOUND CARE XX (06:00)
[2018-08-16 06:17] LABS: CREATINE KINASE 63 IU/L (23-200)
[2018-08-16 06:20] LABS: HEMOGLOBIN A1C 6.5 % (0-5.9)
[2018-08-16 06:21] LABS: ALANINE AMINOTRANSFERASE 19 IU/L (13-69); ALBUMIN 2.6 g/dl (3.3-4.9); ALBUMIN/GLOBULIN RATIO 0.83; ALKALINE PHOSPHATASE 70 IU/L (42-121); ANION GAP 2 (5-13); ASPARTATE AMINO TRANSFERASE 20 IU/L (15-46); BILIRUBIN,INDIRECT 0.4 mg/dl (0-1.1); BILIRUBIN,TOTAL 0.4 mg/dl (0.2-1.3); BLOOD UREA NITROGEN 22 mg/dl (7-20); CALCIUM 7.9 mg/dl (8.4-10.2); CARBON DIOXIDE 26 mmol/L (21-31); CHLORIDE 121 mmol/L (97-110); GLUCOSE 173 mg/dl (70-220); POTASSIUM 3.6 mmol/L (3.5-5.1); SODIUM 149 mmol/L (135-144); TOTAL PROTEIN 5.7 g/dl (6.1-8.1)
[2018-08-16 06:26] LABS: CK INDEX 2.1
[2018-08-16 06:34] LABS: TROPONIN-I 0.153 ng/ml (0.000-0.120)
[2018-08-16 07:40] LABS: ANISOCYTOSIS 2+ (0-0); BAND NEUTROPHILS #M 0.8 10^3/ul (0.0-0.6); BAND NEUTROPHILS % (M) 4 % (0-4); ELLIPTO 1+ (0-0); EOSINOPHILS % (M) 2 % (0-7); LYMPHOCYTES % (M) 5 % (15-51); METAMYELOCYTES #M 0.4 10^3/ul (0.0-0.0); METAMYELOCYTES %M 2 % (0-0); MICROCYTOSIS 2+ (0-0); MONOCYTES % (M) 5 % (0-11); MYELOCYTES #M 0.6 10^3/ul (0.0-0.0); MYELOCYTES % (M) 3 % (0-0); PLATELET ESTIMATE NORMAL; POIKILOCYTOSIS 1+ (0-0); POLYCHROMASIA 3+ (0-0); REACTIVE LYMPHOCYTES #M 0.8 10^3/ul (0.0-0.0); REACTIVE LYMPHOCYTES% (M) 4 % (0-0); SEG NEUT #M 15.7 10^3/ul (1.6-7.5); SEGMENTED NEUTROPHILS (M) % 75 % (39-77); SMUDGE%M 5 % (0-0)
[2018-08-16] MEDS: SOD CHLORIDE 0.9% 1,000 ML IV (08:43)
[2018-08-16] MEDS: VANCOMYCIN 1 GM 250 ML IVPB (08:57)
[2018-08-16] MEDS: FAMOTIDINE 20 MG INJ IV ×2 (09:00→21:31)
[2018-08-16] MEDS: ENOXAPARIN 30 MG/0.3 ML SYG SC (09:28)
[2018-08-16] MEDS ORDERED: BISACODYL (EC) 5 MG TAB PO (11:00)
[2018-08-16] MEDS ORDERED: NITROGLYCERIN (SL) 0.4 MG TAB SL (11:00)
[2018-08-16] MEDS ORDERED: MAGNESIUM HYDROXIDE 30ML CUP PO (11:00)
[2018-08-16] MEDS ORDERED: DEXTROSE 50% 50 ML SYRINGE IV ×2 (14:30)
[2018-08-16] MEDS ORDERED: GLUCOSE GEL 15 GRAM TUBE PO ×2 (14:30)
[2018-08-16] MEDS ORDERED: GLUCOSE GEL 15 GRAM TUBE BUCCAL (14:30)
[2018-08-16] MEDS ORDERED: GLUCAGON 1 MG INJ IM (14:30)
[2018-08-16] MEDS: VALPROIC ACID LIQUID CUP 250 MG/5 ML CUP PO ×2 (15:30→21:31)
[2018-08-16] MEDS: FUROSEMIDE 20 MG TAB PO (15:31)
[2018-08-16] MEDS: MEMANTINE 5 MG TAB PO ×2 (15:31→21:32)
[2018-08-16] MEDS: ASPIRIN (EC) 81 MG TAB PO (15:31)
[2018-08-16] MEDS: SACCHAROMYCES BOULARDII 250 MG CAP PO ×2 (15:32→21:31)
[2018-08-16] MEDS: AMIODARONE 200 MG TAB PO ×2 (15:32→21:32)
[2018-08-16] MEDS: CALCIUM/VITAMIN D (500/200) TAB PO (15:32)
[2018-08-16] MEDS: AMLODIPINE 5 MG TAB PO (15:32)
[2018-08-16] MEDS: HYDROCHLOROTHIAZIDE 25 MG TAB PO (15:32)
[2018-08-16] MEDS: LISINOPRIL 20 MG TAB PO (16:00)
[2018-08-16] MEDS: INSULIN ASPART [NOVOLOG] 3 ML PEN SC ×2 (18:16→21:00)
[2018-08-16] MEDS: TERAZOSIN 1 MG CAP PO (21:32)
[2018-08-16] MEDS: METOPROLOL 25 MG TAB PO (21:32)
[2018-08-16] MEDS: BALSAM PERU/CASTOR OIL 60 GM TUBE TOP (23:30)
[2018-08-17] MEDS: SOD CHLORIDE 0.9% 1,000 ML IV ×3 (00:08→22:31)
[2018-08-17] MEDS: ACCUCHECK AT 2AM (Patients on SS coverage) XX (02:00)
[2018-08-17] MEDS: CEFEPIME 2GM/50 ML (PMX) 50 ML IVPB ×3 (06:37→22:55)
[2018-08-17 08:23] LABS: ADD MAN DIFF? NO
[2018-08-17] MEDS: FAMOTIDINE 20 MG INJ IV ×2 (08:25→22:57)
[2018-08-17] MEDS: MEMANTINE 5 MG TAB PO ×2 (08:26→22:55)
[2018-08-17] MEDS: VALPROIC ACID LIQUID CUP 250 MG/5 ML CUP PO ×2 (08:26→22:55)
[2018-08-17] MEDS: HYDROCHLOROTHIAZIDE 25 MG TAB PO (08:26)
[2018-08-17] MEDS: CALCIUM/VITAMIN D (500/200) TAB PO (08:26)
[2018-08-17] MEDS: AMIODARONE 200 MG TAB PO ×2 (08:26→22:56)
[2018-08-17] MEDS: AMLODIPINE 5 MG TAB PO (08:27)
[2018-08-17] MEDS: FUROSEMIDE 20 MG TAB PO (08:27)
[2018-08-17] MEDS: BALSAM PERU/CASTOR OIL 60 GM TUBE TOP ×2 (08:27→22:57)
[2018-08-17] MEDS: ASPIRIN (EC) 81 MG TAB PO (08:27)
[2018-08-17] MEDS: ENOXAPARIN 30 MG/0.3 ML SYG SC (08:29)
[2018-08-17 08:32] LABS: WHITE BLOOD COUNT 16.2 10^3/ul (4.8-10.8)
[2018-08-17 08:32] LABS: BASOPHIL # 0.1 10^3/ul (0.0-0.1); BASOPHILS % 0.8 % (0.0-2.0); EOSINOPHILS # 0.4 10^3/ul (0.0-0.5); EOSINOPHILS % 2.3 % (0.0-7.0); HEMATOCRIT 35.4 % (42.0-52.0); HEMOGLOBIN 10.6 g/dl (14.0-18.0); LYMPHOCYTES # 1.3 10^3/ul (0.8-2.9); LYMPHOCYTES % 8.1 % (15.0-51.0); MEAN CORPUSCULAR HEMOGLOBIN 27.8 pg (29.0-33.0); MEAN CORPUSCULAR HGB CONC 29.9 g/dl (32.0-37.0); MEAN CORPUSCULAR VOLUME 92.9 fl (82.0-101.0); MEAN PLATELET VOLUME 11.3 fl (7.4-10.4); MONOCYTE # 0.8 10^3/ul (0.3-0.9); MONOCYTES % 4.8 % (0.0-11.0); NEUTROPHIL # 12.8 10^3/ul (1.6-7.5); NEUTROPHILS % 79.1 % (39.0-77.0); PLATELET COUNT 434 10^3/UL (140-415); RED BLOOD COUNT 3.81 10^6/ul (4.70-6.10); RED CELL DISTRIBUTION WIDTH 15.8 % (11.5-14.5)
[2018-08-17] MEDS: SACCHAROMYCES BOULARDII 250 MG CAP PO ×2 (08:34→22:55)
[2018-08-17] MEDS: METOPROLOL 25 MG TAB PO ×2 (08:34→22:57)
[2018-08-17] MEDS: COLLAGENASE 5 GM (UD JAR) TOP (08:36)
[2018-08-17] MEDS: DAKINS 0.0125%(1/40) 473 ML SOLUTION TP (08:36)
[2018-08-17 08:53] LABS: ANION GAP 8 (5-13); BLOOD UREA NITROGEN 22 mg/dl (7-20); CALCIUM 8.3 mg/dl (8.4-10.2); CARBON DIOXIDE 26 mmol/L (21-31); CHLORIDE 114 mmol/L (97-110); CHOL/HDL RATIO 6.5 RATIO; CHOLESTEROL 112 mg/dl (100-200); CREATININE 0.52 mg/dl (0.61-1.24); GLUCOSE 194 mg/dl (70-220); HDL CHOLESTEROL 17 mg/dl (31-75); LDL CHOLESTEROL,CALCULATED 53 mg/dl; POTASSIUM 3.5 mmol/L (3.5-5.1); SODIUM 148 mmol/L (135-144); TRIGLYCERIDES 210 mg/dl (0-149)
[2018-08-17 08:55] LABS: CREATINE KINASE 56 IU/L (23-200)
[2018-08-17 09:01] LABS: VALPROATE 16 ug/ml (50-100)
[2018-08-17 09:08] LABS: CK INDEX 3.5; CK-MB 1.96 ng/ml (0.0-2.4); TROPONIN-I 0.097 ng/ml (0.000-0.120)
[2018-08-17] MEDS: INSULIN ASPART [NOVOLOG] 3 ML PEN SC ×4 (09:42→22:29)
[2018-08-17] MEDS: VANCOMYCIN HCL 1.25 GM in SOD CHLORIDE 0.9% 250 ML IVPB (11:28)
[2018-08-17] MEDS: LISINOPRIL 20 MG TAB PO (13:48)
[2018-08-17] MEDS: MUPIROCIN 2% 22 GM OINT TOP ×2 (17:02→22:55)
[2018-08-17] MEDS: TERAZOSIN 1 MG CAP PO (22:57)
[2018-08-17] MEDS: QUETIAPINE 25 MG TAB GTB (23:52)
[2018-08-18] MEDS: ACCUCHECK AT 2AM (Patients on SS coverage) XX (01:47)
[2018-08-18] MEDS: CEFEPIME 2GM/50 ML (PMX) 50 ML IVPB ×3 (06:40→22:10)
[2018-08-18] MEDS: PANTOPRAZOLE (EC) 40 MG TAB PO (06:45)
[2018-08-18 06:57] LABS: BLOOD UREA NITROGEN 24 mg/dl (7-20)
[2018-08-18 06:57] LABS: CREATININE 0.58 mg/dl (0.61-1.24)
[2018-08-18] MEDS: INSULIN ASPART [NOVOLOG] 3 ML PEN SC ×5 (08:10→21:00)
[2018-08-18] MEDS: INSULIN GLARGINE [LANTus] (100 UNITS/ML) SYG SC (08:24)
[2018-08-18] MEDS: ENOXAPARIN 30 MG/0.3 ML SYG SC (08:24)
[2018-08-18] MEDS: DAKINS 0.0125%(1/40) 473 ML SOLUTION TP (09:00)
[2018-08-18] MEDS: COLLAGENASE 5 GM (UD JAR) TOP (09:00)
[2018-08-18] MEDS: BALSAM PERU/CASTOR OIL 60 GM TUBE TOP ×2 (09:00→21:53)
[2018-08-18] MEDS: METOPROLOL 25 MG TAB PO (09:00)
[2018-08-18] MEDS: VANCOMYCIN HCL 1.25 GM in SOD CHLORIDE 0.9% 250 ML IVPB (09:27)
[2018-08-18] MEDS: QUETIAPINE 25 MG TAB GTB ×2 (09:28→21:54)
[2018-08-18] MEDS: ASPIRIN (EC) 81 MG TAB PO (09:28)
[2018-08-18] MEDS: CALCIUM/VITAMIN D (500/200) TAB PO (09:28)
[2018-08-18] MEDS: SACCHAROMYCES BOULARDII 250 MG CAP PO (09:28)
[2018-08-18] MEDS: VALPROIC ACID LIQUID CUP 250 MG/5 ML CUP PO (09:28)
[2018-08-18] MEDS: MEMANTINE 5 MG TAB PO (09:28)
[2018-08-18] MEDS: FUROSEMIDE 20 MG TAB PO (09:29)
[2018-08-18] MEDS: AMIODARONE 200 MG TAB PO (09:30)
[2018-08-18] MEDS: AMLODIPINE 5 MG TAB PO (09:30)
[2018-08-18] MEDS: MUPIROCIN 2% 22 GM OINT TOP ×2 (09:31→21:53)
[2018-08-18] MEDS: LISINOPRIL 20 MG TAB PO (14:00)
[2018-08-18] MEDS: SOD CHLORIDE 0.9% 1,000 ML IV (18:42)
[2018-08-18] MEDS: MEMANTINE 5 MG TAB GTB (22:07)
[2018-08-18] MEDS: SACCHAROMYCES BOULARDII 250 MG CAP GTB (22:07)
[2018-08-18] MEDS: VALPROIC ACID LIQUID CUP 250 MG/5 ML CUP GTB (22:07)
[2018-08-18] MEDS: TERAZOSIN 1 MG CAP GTB (22:07)
[2018-08-18] MEDS: AMIODARONE 200 MG TAB GTB (22:08)
[2018-08-18] MEDS: METOPROLOL 25 MG TAB GTB (22:08)
[2018-08-19] MEDS: ACCUCHECK AT 2AM (Patients on SS coverage) XX (02:00)
[2018-08-19] MEDS: DAKINS 0.0125%(1/40) 473 ML SOLUTION TP ×2 (03:38→11:54)
[2018-08-19] MEDS: COLLAGENASE 5 GM (UD JAR) TOP ×2 (03:41→11:55)
[2018-08-19] MEDS: CEFEPIME 2GM/50 ML (PMX) 50 ML IVPB ×3 (05:55→23:05)
[2018-08-19] MEDS ORDERED: INSULIN ASPART [NOVOLOG] 3 ML PEN SC (06:00)
[2018-08-19] MEDS: Insulin NOVOLOG SS MILD Algorithm (NPO/TPN/ENTERAL FEEDS) SC ×3 (06:04→17:21)
[2018-08-19] MEDS: ENOXAPARIN 30 MG/0.3 ML SYG SC (08:32)
[2018-08-19] MEDS: VALPROIC ACID LIQUID CUP 250 MG/5 ML CUP PO (08:32)
[2018-08-19] MEDS: SACCHAROMYCES BOULARDII 250 MG CAP GTB ×2 (08:32→23:05)
[2018-08-19] MEDS: QUETIAPINE 25 MG TAB GTB ×2 (08:33→23:07)
[2018-08-19] MEDS: CALCIUM/VITAMIN D (500/200) TAB PO (08:33)
[2018-08-19] MEDS: MEMANTINE 5 MG TAB GTB ×2 (08:33→23:07)
[2018-08-19] MEDS: ASPIRIN (EC) 81 MG TAB PO (08:33)
[2018-08-19] MEDS: FUROSEMIDE 20 MG TAB PO (08:33)
[2018-08-19] MEDS: METOPROLOL 25 MG TAB GTB ×2 (08:34→23:07)
[2018-08-19] MEDS: AMIODARONE 200 MG TAB PO (08:34)
[2018-08-19] MEDS: AMLODIPINE 5 MG TAB PO ×2 (09:00→17:19)
[2018-08-19 09:36] LABS: VANCOMYCIN,TROUGH 10.3 ug/ml (10.0-20.0)
[2018-08-19 10:01] LABS: CREATININE 0.43 mg/dl (0.61-1.24)
[2018-08-19 10:01] LABS: BLOOD UREA NITROGEN 23 mg/dl (7-20)
[2018-08-19] MEDS: VANCOMYCIN HCL 1.25 GM in SOD CHLORIDE 0.9% 250 ML IVPB (11:15)
[2018-08-19] MEDS: INSULIN GLARGINE [LANTus] (100 UNITS/ML) SYG SC (11:17)
[2018-08-19] MEDS: MUPIROCIN 2% 22 GM OINT TOP ×2 (11:21→23:09)
[2018-08-19] MEDS: BALSAM PERU/CASTOR OIL 60 GM TUBE TOP ×2 (11:54→23:09)
[2018-08-19] MEDS: LISINOPRIL 20 MG TAB PO (14:00)
[2018-08-19] MEDS: SOD CHLORIDE 0.9% 1,000 ML IV (14:17)
[2018-08-19] MEDS: VALPROIC ACID LIQUID CUP 250 MG/5 ML CUP GTB (23:05)
[2018-08-19] MEDS: TERAZOSIN 1 MG CAP GTB (23:06)
[2018-08-19] MEDS: AMIODARONE 200 MG TAB GTB (23:06)
[2018-08-20] MEDS: Insulin NOVOLOG SS MILD Algorithm (NPO/TPN/ENTERAL FEEDS) SC ×4 (01:21→17:29)
[2018-08-20] MEDS: ACCUCHECK AT 2AM (Patients on SS coverage) XX (01:22)
[2018-08-20 06:11] LABS: WHITE BLOOD COUNT 15.9 10^3/ul (4.8-10.8)
[2018-08-20 06:11] LABS: ABNORMAL IP MESSAGE 1; HEMATOCRIT 30.1 % (42.0-52.0); HEMOGLOBIN 9.3 g/dl (14.0-18.0); MEAN CORPUSCULAR HEMOGLOBIN 27.4 pg (29.0-33.0); MEAN CORPUSCULAR HGB CONC 30.9 g/dl (32.0-37.0); MEAN CORPUSCULAR VOLUME 88.5 fl (82.0-101.0); MEAN PLATELET VOLUME 11.2 fl (7.4-10.4); PLATELET COUNT 393 10^3/UL (140-415); POSITIVE DIFF @See below; RED CELL DISTRIBUTION WIDTH 15.7 % (11.5-14.5)
[2018-08-20 06:13] LABS: ADD MAN DIFF? YES
[2018-08-20] MEDS: LANSOPRAZOLE 30 MG CAP GTB (06:25)
[2018-08-20] MEDS: CEFEPIME 2GM/50 ML (PMX) 50 ML IVPB ×3 (06:25→21:19)
[2018-08-20 06:57] LABS: ANION GAP 5 (5-13); BLOOD UREA NITROGEN 21 mg/dl (7-20); CALCIUM 7.7 mg/dl (8.4-10.2); CARBON DIOXIDE 29 mmol/L (21-31); CHLORIDE 108 mmol/L (97-110); CREATININE 0.45 mg/dl (0.61-1.24); GLUCOSE 144 mg/dl (70-220); MAGNESIUM 1.9 mg/dl (1.7-2.5); POTASSIUM 3.2 mmol/L (3.5-5.1); SODIUM 142 mmol/L (135-144)
[2018-08-20 07:26] LABS: ANISOCYTOSIS 1+ (0-0); BASOPHIL #M 0.3 10^3/ul (0.0-0.0); BASOPHILS % (M) 2 % (0-2); BURR CELLS 1+ (0-0); EOSINOPHILS % (M) 1 % (0-7); LYMPHOCYTES #M 0.9 10^3/ul (0.8-2.9); LYMPHOCYTES % (M) 6 % (15-51); METAMYELOCYTES #M 0.3 10^3/ul (0.0-0.0); METAMYELOCYTES %M 2 % (0-0); MICROCYTOSIS 1+ (0-0); MONOCYTE #M 1.1 10^3/ul (0.3-0.9); MONOCYTES % (M) 7 % (0-11); MYELOCYTES #M 0.3 10^3/ul (0.0-0.0); MYELOCYTES % (M) 2 % (0-0); PLATELET ESTIMATE NORMAL; POIKILOCYTOSIS 1+ (0-0); POLYCHROMASIA 3+ (0-0); REACTIVE LYMPHOCYTES #M 0.3 10^3/ul (0.0-0.0); REACTIVE LYMPHOCYTES% (M) 2 % (0-0); SEGMENTED NEUTROPHILS (M) % 78 % (39-77); SMUDGE%M 6 % (0-0)
[2018-08-20] MEDS: SOD CHLORIDE 0.9% 1,000 ML IV (07:28)
[2018-08-20] MEDS: INSULIN GLARGINE [LANTus] (100 UNITS/ML) SYG SC (08:13)
[2018-08-20] MEDS: FUROSEMIDE 20 MG TAB PO (08:14)
[2018-08-20] MEDS: MEMANTINE 5 MG TAB GTB ×2 (08:14→21:01)
[2018-08-20] MEDS: CALCIUM/VITAMIN D (500/200) TAB PO (08:14)
[2018-08-20] MEDS: ENOXAPARIN 30 MG/0.3 ML SYG SC (08:14)
[2018-08-20] MEDS: AMIODARONE 200 MG TAB PO (08:15)
[2018-08-20] MEDS: QUETIAPINE 25 MG TAB GTB ×2 (08:15→21:01)
[2018-08-20] MEDS: AMLODIPINE 5 MG TAB PO (08:15)
[2018-08-20] MEDS: ASPIRIN (EC) 81 MG TAB PO (08:15)
[2018-08-20] MEDS: VALPROIC ACID LIQUID CUP 250 MG/5 ML CUP PO (08:16)
[2018-08-20] MEDS: METOPROLOL 25 MG TAB GTB ×2 (08:16→21:00)
[2018-08-20] MEDS: SACCHAROMYCES BOULARDII 250 MG CAP GTB ×2 (08:16→21:00)
[2018-08-20] MEDS: MUPIROCIN 2% 22 GM OINT TOP ×2 (08:16→21:19)
[2018-08-20] MEDS: DAKINS 0.0125%(1/40) 473 ML SOLUTION TP (08:17)
[2018-08-20] MEDS: BALSAM PERU/CASTOR OIL 60 GM TUBE TOP ×2 (08:17→21:19)
[2018-08-20] MEDS: VANCOMYCIN HCL 1.5 GM in SOD CHLORIDE 0.9% 250 ML IVPB (11:05)
[2018-08-20] MEDS: ACETAMINOPHEN 325 MG TAB PO ×2 (11:54→23:25)
[2018-08-20] MEDS: LISINOPRIL 20 MG TAB PO (14:15)
[2018-08-20] MEDS: D5W-0.45 NACL + KCL 20 MEQ 1,000 ML IV (18:30)
[2018-08-20] MEDS: POTASSIUM CHLORIDE 20 MEQ POWDER FOR ORAL SOLN GTB (18:34)
[2018-08-20] MEDS: TERAZOSIN 1 MG CAP GTB (21:00)
[2018-08-20] MEDS: AMIODARONE 200 MG TAB GTB (21:01)
[2018-08-20] MEDS: VALPROIC ACID LIQUID CUP 250 MG/5 ML CUP GTB (21:01)
[2018-08-21] MEDS: INSULIN ASPART [NOVOLOG] 3 ML PEN SC ×6 (01:00→21:00)
[2018-08-21] MEDS: D5W-0.45 NACL + KCL 20 MEQ 1,000 ML IV ×2 (01:21→11:10)
[2018-08-21] MEDS: ACCUCHECK AT 2AM (Patients on SS coverage) XX (02:00)
[2018-08-21] MEDS: LANSOPRAZOLE 30 MG CAP GTB (06:00)
[2018-08-21] MEDS: CEFEPIME 2GM/50 ML (PMX) 50 ML IVPB ×3 (06:09→23:29)
[2018-08-21] MEDS: AMIODARONE 200 MG TAB PO (09:00)
[2018-08-21] MEDS: SACCHAROMYCES BOULARDII 250 MG CAP GTB ×2 (09:00→23:28)
[2018-08-21] MEDS: FUROSEMIDE 20 MG TAB PO (09:00)
[2018-08-21] MEDS: CALCIUM/VITAMIN D (500/200) TAB PO (09:00)
[2018-08-21] MEDS: ENOXAPARIN 30 MG/0.3 ML SYG SC (09:00)
[2018-08-21] MEDS: METOPROLOL 25 MG TAB GTB ×2 (09:00→23:27)
[2018-08-21] MEDS: ASPIRIN (EC) 81 MG TAB PO (09:00)
[2018-08-21] MEDS: AMLODIPINE 5 MG TAB PO (09:00)
[2018-08-21] MEDS: INSULIN GLARGINE [LANTus] (100 UNITS/ML) SYG SC (09:14)
[2018-08-21] MEDS: ACETAMINOPHEN 325 MG TAB PO (09:14)
[2018-08-21] MEDS: QUETIAPINE 25 MG TAB GTB ×2 (09:15→23:27)
[2018-08-21] MEDS: VALPROIC ACID LIQUID CUP 250 MG/5 ML CUP PO (09:15)
[2018-08-21] MEDS: MEMANTINE 5 MG TAB GTB ×2 (09:16→23:28)
[2018-08-21] MEDS: DAKINS 0.0125%(1/40) 473 ML SOLUTION TP (09:19)
[2018-08-21] MEDS: MUPIROCIN 2% 22 GM OINT TOP ×2 (09:19→23:29)
[2018-08-21] MEDS: BALSAM PERU/CASTOR OIL 60 GM TUBE TOP ×2 (09:19→23:29)
[2018-08-21] MEDS: VANCOMYCIN HCL 1.5 GM in SOD CHLORIDE 0.9% 250 ML IVPB (11:36)
[2018-08-21] MEDS: LISINOPRIL 20 MG TAB PO (13:16)
[2018-08-21 15:41] LABS: ABNORMAL IP MESSAGE 1; HEMATOCRIT 32.2 % (42.0-52.0); HEMOGLOBIN 10.1 g/dl (14.0-18.0); MEAN CORPUSCULAR HEMOGLOBIN 27.7 pg (29.0-33.0); MEAN CORPUSCULAR HGB CONC 31.4 g/dl (32.0-37.0); MEAN CORPUSCULAR VOLUME 88.5 fl (82.0-101.0); MEAN PLATELET VOLUME 11.1 fl (7.4-10.4); NUCLEATED RED BLOOD CELLS% 0.1 /100WBC (0.0-0.0); PLATELET COUNT 393 10^3/UL (140-415); POSITIVE DIFF @See below; RED BLOOD COUNT 3.64 10^6/ul (4.70-6.10); RED CELL DISTRIBUTION WIDTH 15.6 % (11.5-14.5)
[2018-08-21 15:41] LABS: WHITE BLOOD COUNT 14.8 10^3/ul (4.8-10.8)
[2018-08-21 15:49] LABS: PLATELET COUNT 393 10^3/UL (140-415)
[2018-08-21 16:02] LABS: INR 1.18; PROTIME 15.1 Sec (11.9-14.9); PT RATIO 1.2
[2018-08-21 16:03] LABS: ANION GAP 5 (5-13); BLOOD UREA NITROGEN 16 mg/dl (7-20); CALCIUM 8.2 mg/dl (8.4-10.2); CARBON DIOXIDE 28 mmol/L (21-31); CHLORIDE 107 mmol/L (97-110); CREATININE 0.44 mg/dl (0.61-1.24); GLUCOSE 93 mg/dl (70-220); MAGNESIUM 2.1 mg/dl (1.7-2.5); PARTIAL THROMBOPLASTIN TIME 38.6 Sec (23.0-35.0); POTASSIUM 3.6 mmol/L (3.5-5.1); SODIUM 140 mmol/L (135-144); THROMBIN TIME 15.7 SEC (13.8-19.1)
[2018-08-21 18:18] LABS: ADD MAN DIFF? YES
[2018-08-21 19:45] LABS: ANISOCYTOSIS 1+ (0-0); BAND NEUTROPHILS #M 0.8 10^3/ul (0.0-0.6); BAND NEUTROPHILS % (M) 6 % (0-4); EOSINOPHILS % (M) 2 % (0-7); GIANT THROMBO% (M) 1 % (0-0); LYMPHOCYTES #M 1.3 10^3/ul (0.8-2.9); LYMPHOCYTES % (M) 9 % (15-51); METAMYELOCYTES #M 0.1 10^3/ul (0.0-0.0); METAMYELOCYTES %M 1 % (0-0); MICROCYTOSIS 1+ (0-0); MONOCYTES % (M) 7 % (0-11); MYELOCYTES #M 0.5 10^3/ul (0.0-0.0); MYELOCYTES % (M) 4 % (0-0); OVALOCYTES 1+ (0-0); PLATELET ESTIMATE NORMAL; POIKILOCYTOSIS 1+ (0-0); POLYCHROMASIA 1+ (0-0); REACTIVE LYMPHOCYTES #M 0.1 10^3/ul (0.0-0.0); REACTIVE LYMPHOCYTES% (M) 1 % (0-0); SEG NEUT #M 10.5 10^3/ul (1.6-7.5); SEGMENTED NEUTROPHILS (M) % 70 % (39-77); SMUDGE%M 36 % (0-0)
[2018-08-21] MEDS ORDERED: MIDAZOLAM 1 MG/ML 2 ML INJ ×2 (20:09→21:05)
[2018-08-21] MEDS ORDERED: FENTAnyl 50 MCG/ML VIAL ×3 (20:09→20:55)
[2018-08-21] MEDS ORDERED: KETAMINE (50 MG/ML) 10 ML VIAL (20:13)
[2018-08-21] MEDS ORDERED: LIDOCAINE 1% (MPF) 30 ML INJ (20:14)
[2018-08-21] MEDS ORDERED: BUPIVACAINE 0.5% (SDV) 30 ML INJ (20:14)
[2018-08-21] MEDS ORDERED: LIDOCAINE 2% (SDV) 5 ML INJ (21:27)
[2018-08-21] MEDS ORDERED: PROPOFOL 20 ML (21:27)
[2018-08-21] MEDS ORDERED: ROPIVACAINE 0.5 % 30 ML VIAL (21:28)
[2018-08-21] MEDS ORDERED: PHENYLephrine 10 MG INJ (21:53)
[2018-08-21] MEDS: POLYMYXIN B 500000 UNIT INJ ×2 (22:09)
[2018-08-21] MEDS: BACITRACIN 50000 UNITS INJ IRR ×2 (22:09)
[2018-08-21] MEDS: VANCOMYCIN 1 GM INJ (22:09)
[2018-08-21] MEDS ORDERED: DIPHENHYDRAMINE 50 MG INJ IV (22:30)
[2018-08-21] MEDS ORDERED: NALOXONE (0.4 MG/ML) INJ IV (22:30)
[2018-08-21] MEDS ORDERED: HYDROmorphONE 1 MG/5 ML IV SYRINGE IV ×2 (22:30)
[2018-08-21] MEDS ORDERED: ONDANSETRON 4 MG INJ IV (22:30)
[2018-08-21] MEDS ORDERED: FENTAnyl 50 MCG/ML VIAL IV (22:30)
[2018-08-21] MEDS: TERAZOSIN 1 MG CAP GTB (23:28)
[2018-08-21] MEDS: AMIODARONE 200 MG TAB GTB (23:28)
[2018-08-21] MEDS: VALPROIC ACID LIQUID CUP 250 MG/5 ML CUP GTB (23:28)
[2018-08-22] MEDS: INSULIN ASPART [NOVOLOG] 3 ML PEN SC ×5 (01:00→23:43)
[2018-08-22] MEDS: ACCUCHECK AT 2AM (Patients on SS coverage) XX (01:57)
[2018-08-22] MEDS: LANSOPRAZOLE 30 MG CAP GTB (05:54)
[2018-08-22] MEDS: CEFEPIME 2GM/50 ML (PMX) 50 ML IVPB ×3 (05:54→21:30)
[2018-08-22 07:21] LABS: ADD MAN DIFF? NO
[2018-08-22 07:28] LABS: WHITE BLOOD COUNT 17.3 10^3/ul (4.8-10.8)
[2018-08-22 07:28] LABS: ABNORMAL IP MESSAGE 1; BASOPHIL # 0.2 10^3/ul (0.0-0.1); BASOPHILS % 0.9 % (0.0-2.0); EOSINOPHILS # 0.4 10^3/ul (0.0-0.5); EOSINOPHILS % 2.3 % (0.0-7.0); HEMATOCRIT 28.4 % (42.0-52.0); HEMOGLOBIN 8.8 g/dl (14.0-18.0); LYMPHOCYTES # 1.3 10^3/ul (0.8-2.9); LYMPHOCYTES % 7.3 % (15.0-51.0); MEAN CORPUSCULAR HEMOGLOBIN 27.8 pg (29.0-33.0); MEAN CORPUSCULAR VOLUME 89.9 fl (82.0-101.0); MEAN PLATELET VOLUME 11.7 fl (7.4-10.4); MONOCYTE # 1.4 10^3/ul (0.3-0.9); MONOCYTES % 8.3 % (0.0-11.0); NEUTROPHILS % 75.4 % (39.0-77.0); PLATELET COUNT 393 10^3/UL (140-415); POSITIVE DIFF @See below; RED BLOOD COUNT 3.16 10^6/ul (4.70-6.10); RED CELL DISTRIBUTION WIDTH 15.6 % (11.5-14.5)
[2018-08-22 07:49] LABS: ANION GAP 2 (5-13); BLOOD UREA NITROGEN 18 mg/dl (7-20); CALCIUM 8.2 mg/dl (8.4-10.2); CARBON DIOXIDE 27 mmol/L (21-31); CHLORIDE 110 mmol/L (97-110); CREATININE 0.43 mg/dl (0.61-1.24); GLUCOSE 156 mg/dl (70-220); POTASSIUM 3.8 mmol/L (3.5-5.1); SODIUM 139 mmol/L (135-144)
[2018-08-22] MEDS: METOPROLOL 25 MG TAB GTB ×2 (08:41→20:58)
[2018-08-22] MEDS: AMLODIPINE 5 MG TAB PO (08:41)
[2018-08-22] MEDS: VALPROIC ACID LIQUID CUP 250 MG/5 ML CUP PO (08:42)
[2018-08-22] MEDS: ENOXAPARIN 30 MG/0.3 ML SYG SC (08:42)
[2018-08-22] MEDS: SACCHAROMYCES BOULARDII 250 MG CAP GTB ×2 (08:43→20:57)
[2018-08-22] MEDS: AMIODARONE 200 MG TAB PO (08:43)
[2018-08-22] MEDS: MEMANTINE 5 MG TAB GTB ×2 (08:44→20:57)
[2018-08-22] MEDS: QUETIAPINE 25 MG TAB GTB ×2 (08:44→20:58)
[2018-08-22] MEDS: ASPIRIN (EC) 81 MG TAB PO (08:44)
[2018-08-22] MEDS: FUROSEMIDE 20 MG TAB PO (08:44)
[2018-08-22] MEDS: CALCIUM/VITAMIN D (500/200) TAB PO (08:44)
[2018-08-22] MEDS: INSULIN GLARGINE [LANTus] (100 UNITS/ML) SYG SC (09:21)
[2018-08-22] MEDS: MUPIROCIN 2% 22 GM OINT TOP ×2 (09:21→20:59)
[2018-08-22] MEDS: BALSAM PERU/CASTOR OIL 60 GM TUBE TOP ×2 (09:22→20:59)
[2018-08-22 10:04] LABS: ANISOCYTOSIS 2+ (0-0); BAND NEUTROPHILS #M 1.5 10^3/ul (0.0-0.6); BAND NEUTROPHILS % (M) 9 % (0-4); BASOPHIL #M 0.3 10^3/ul (0.0-0.0); BASOPHILS % (M) 2 % (0-2); EOSINOPHILS % (M) 2 % (0-7); LYMPHOCYTES #M 1.9 10^3/ul (0.8-2.9); LYMPHOCYTES % (M) 11 % (15-51); MICROCYTOSIS 2+ (0-0); MONOCYTE #M 0.3 10^3/ul (0.3-0.9); MONOCYTES % (M) 2 % (0-11); PLATELET ESTIMATE NORMAL; POLYCHROMASIA 1+ (0-0); REACTIVE LYMPHOCYTES #M 0.1 10^3/ul (0.0-0.0); REACTIVE LYMPHOCYTES% (M) 1 % (0-0); SEG NEUT #M 12.9 10^3/ul (1.6-7.5); SEGMENTED NEUTROPHILS (M) % 73 % (39-77); SMUDGE%M 8 % (0-0)
[2018-08-22] MEDS: VANCOMYCIN HCL 1.5 GM in SOD CHLORIDE 0.9% 250 ML IVPB (10:33)
[2018-08-22] MEDS: morphine 2 MG INJ IV ×2 (10:33→21:30)
[2018-08-22] MEDS: LISINOPRIL 20 MG TAB PO (13:00)
[2018-08-22] MEDS: DAKINS 0.0125%(1/40) 473 ML SOLUTION TP (18:05)
[2018-08-22] MEDS: VALPROIC ACID LIQUID CUP 250 MG/5 ML CUP GTB (20:56)
[2018-08-22] MEDS: AMIODARONE 200 MG TAB GTB (20:57)
[2018-08-22] MEDS: TERAZOSIN 1 MG CAP GTB (20:57)
[2018-08-23] MEDS: ACCUCHECK AT 2AM (Patients on SS coverage) XX (01:30)
[2018-08-23] MEDS: INSULIN ASPART [NOVOLOG] 3 ML PEN SC ×3 (05:43→17:36)
[2018-08-23] MEDS: LANSOPRAZOLE 30 MG CAP GTB (05:43)
[2018-08-23] MEDS: CEFEPIME 2GM/50 ML (PMX) 50 ML IVPB ×3 (05:43→21:31)
[2018-08-23] MEDS: morphine 2 MG INJ IV ×3 (05:44→15:51)
[2018-08-23] MEDS: INSULIN GLARGINE [LANTus] (100 UNITS/ML) SYG SC (08:07)
[2018-08-23] MEDS: ENOXAPARIN 30 MG/0.3 ML SYG SC (08:12)
[2018-08-23] MEDS: SACCHAROMYCES BOULARDII 250 MG CAP GTB ×2 (08:13→20:49)
[2018-08-23] MEDS: VALPROIC ACID LIQUID CUP 250 MG/5 ML CUP PO (08:13)
[2018-08-23] MEDS: AMLODIPINE 5 MG TAB PO (08:14)
[2018-08-23] MEDS: FUROSEMIDE 20 MG TAB PO (08:14)
[2018-08-23] MEDS: CALCIUM/VITAMIN D (500/200) TAB PO (08:14)
[2018-08-23] MEDS: QUETIAPINE 25 MG TAB GTB ×2 (08:15→20:49)
[2018-08-23] MEDS: ASPIRIN (EC) 81 MG TAB PO (08:15)
[2018-08-23] MEDS: METOPROLOL 25 MG TAB GTB ×2 (08:15→20:53)
[2018-08-23] MEDS: MEMANTINE 5 MG TAB GTB ×2 (08:15→20:53)
[2018-08-23] MEDS: AMIODARONE 200 MG TAB PO (10:17)
[2018-08-23] MEDS: DAKINS 0.0125%(1/40) 473 ML SOLUTION TP (10:18)
[2018-08-23] MEDS: MUPIROCIN 2% 22 GM OINT TOP ×2 (10:18→20:54)
[2018-08-23] MEDS: BALSAM PERU/CASTOR OIL 60 GM TUBE TOP ×2 (10:19→20:54)
[2018-08-23 11:22] LABS: VANCOMYCIN,TROUGH 13.4 ug/ml (10.0-20.0)
[2018-08-23] MEDS: VANCOMYCIN HCL 1.5 GM in SOD CHLORIDE 0.9% 250 ML IVPB (12:59)
[2018-08-23] MEDS: LISINOPRIL 20 MG TAB PO (15:53)
[2018-08-23] MEDS: VALPROIC ACID LIQUID CUP 250 MG/5 ML CUP GTB (20:49)
[2018-08-23] MEDS: AMIODARONE 200 MG TAB GTB (20:52)
[2018-08-23] MEDS: TERAZOSIN 1 MG CAP GTB (20:53)
[2018-08-24] MEDS: INSULIN ASPART [NOVOLOG] 3 ML PEN SC ×4 (01:26→17:55)
[2018-08-24] MEDS: ACCUCHECK AT 2AM (Patients on SS coverage) XX (01:27)
[2018-08-24] MEDS: morphine 2 MG INJ IV ×2 (03:07→20:31)
[2018-08-24] MEDS: CEFEPIME 2GM/50 ML (PMX) 50 ML IVPB ×3 (05:41→22:47)
[2018-08-24] MEDS: LANSOPRAZOLE 30 MG CAP GTB (05:41)
[2018-08-24 06:25] LABS: WHITE BLOOD COUNT 12.1 10^3/ul (4.8-10.8)
[2018-08-24 06:25] LABS: ABNORMAL IP MESSAGE 1; HEMATOCRIT 27.6 % (42.0-52.0); HEMOGLOBIN 8.5 g/dl (14.0-18.0); MEAN CORPUSCULAR HEMOGLOBIN 26.8 pg (29.0-33.0); MEAN CORPUSCULAR HGB CONC 30.8 g/dl (32.0-37.0); MEAN CORPUSCULAR VOLUME 87.1 fl (82.0-101.0); MEAN PLATELET VOLUME 11.7 fl (7.4-10.4); PLATELET COUNT 401 10^3/UL (140-415); POSITIVE DIFF @See below; RED BLOOD COUNT 3.17 10^6/ul (4.70-6.10)
[2018-08-24 06:47] LABS: ANION GAP 2 (5-13); BLOOD UREA NITROGEN 21 mg/dl (7-20); CALCIUM 8.1 mg/dl (8.4-10.2); CARBON DIOXIDE 30 mmol/L (21-31); CHLORIDE 107 mmol/L (97-110); CREATININE 0.45 mg/dl (0.61-1.24); GLUCOSE 120 mg/dl (70-220); POTASSIUM 3.6 mmol/L (3.5-5.1); SODIUM 139 mmol/L (135-144)
[2018-08-24 06:56] LABS: ADD MAN DIFF? YES
[2018-08-24] MEDS: ENOXAPARIN 30 MG/0.3 ML SYG SC (09:50)
[2018-08-24] MEDS: INSULIN GLARGINE [LANTus] (100 UNITS/ML) SYG SC (09:50)
[2018-08-24 09:53] LABS: ANISOCYTOSIS 1+ (0-0); BAND NEUTROPHILS #M 0.6 10^3/ul (0.0-0.6); BAND NEUTROPHILS % (M) 5 % (0-4); BASOPHIL #M 0.2 10^3/ul (0.0-0.0); BASOPHILS % (M) 2 % (0-2); EOSINOPHILS % (M) 5 % (0-7); LYMPHOCYTES #M 0.7 10^3/ul (0.8-2.9); LYMPHOCYTES % (M) 6 % (15-51); METAMYELOCYTES #M 0.2 10^3/ul (0.0-0.0); METAMYELOCYTES %M 2 % (0-0); MONOCYTES % (M) 9 % (0-11); MYELOCYTES #M 0.2 10^3/ul (0.0-0.0); MYELOCYTES % (M) 2 % (0-0); OVALOCYTES 1+ (0-0); PLATELET ESTIMATE NORMAL; PLATELET MORPHOLOGY COMMENT @See below; POIKILOCYTOSIS 1+ (0-0); POLYCHROMASIA 2+ (0-0); SEG NEUT #M 8.4 10^3/ul (1.6-7.5); SEGMENTED NEUTROPHILS (M) % 69 % (39-77); SMUDGE%M 29 % (0-0)
[2018-08-24] MEDS: MUPIROCIN 2% 22 GM OINT TOP ×2 (09:54→20:45)
[2018-08-24] MEDS: DAKINS 0.0125%(1/40) 473 ML SOLUTION TP (09:54)
[2018-08-24] MEDS: BALSAM PERU/CASTOR OIL 60 GM TUBE TOP ×2 (09:54→20:45)
[2018-08-24] MEDS: COLLAGENASE 5 GM (UD JAR) TOP (09:55)
[2018-08-24] MEDS: QUETIAPINE 25 MG TAB GTB ×2 (09:55→20:44)
[2018-08-24] MEDS: CALCIUM/VITAMIN D (500/200) TAB PO (09:56)
[2018-08-24] MEDS: SACCHAROMYCES BOULARDII 250 MG CAP GTB ×2 (09:56→20:43)
[2018-08-24] MEDS: MEMANTINE 5 MG TAB GTB ×2 (09:57→20:43)
[2018-08-24] MEDS: AMLODIPINE 5 MG TAB PO (09:57)
[2018-08-24] MEDS: AMIODARONE 200 MG TAB PO (09:57)
[2018-08-24] MEDS: METOPROLOL 25 MG TAB GTB ×2 (09:58→20:44)
[2018-08-24] MEDS: FUROSEMIDE 20 MG TAB PO (09:59)
[2018-08-24] MEDS: VALPROIC ACID LIQUID CUP 250 MG/5 ML CUP PO (10:00)
[2018-08-24] MEDS: ASPIRIN (EC) 81 MG TAB PO (10:02)
[2018-08-24] MEDS: VANCOMYCIN HCL 1.5 GM in SOD CHLORIDE 0.9% 250 ML IVPB (11:09)
[2018-08-24] MEDS: LISINOPRIL 20 MG TAB PO (14:07)
[2018-08-24] MEDS: VALPROIC ACID LIQUID CUP 250 MG/5 ML CUP GTB (20:41)
[2018-08-24] MEDS: AMIODARONE 200 MG TAB GTB (20:43)
[2018-08-24] MEDS: TERAZOSIN 1 MG CAP GTB (20:44)
[2018-08-25] MEDS: INSULIN ASPART [NOVOLOG] 3 ML PEN SC ×4 (01:36→17:52)
[2018-08-25] MEDS: ACCUCHECK AT 2AM (Patients on SS coverage) XX (02:00)
[2018-08-25] MEDS: LANSOPRAZOLE 30 MG CAP GTB (05:39)
[2018-08-25] MEDS: CEFEPIME 2GM/50 ML (PMX) 50 ML IVPB ×3 (05:39→21:31)
[2018-08-25] MEDS: COLLAGENASE 5 GM (UD JAR) TOP (09:19)
[2018-08-25] MEDS: ENOXAPARIN 30 MG/0.3 ML SYG SC (09:19)
[2018-08-25] MEDS: INSULIN GLARGINE [LANTus] (100 UNITS/ML) SYG SC (09:19)
[2018-08-25] MEDS: DAKINS 0.0125%(1/40) 473 ML SOLUTION TP (09:20)
[2018-08-25] MEDS: BALSAM PERU/CASTOR OIL 60 GM TUBE TOP ×2 (09:20→21:24)
[2018-08-25] MEDS: CALCIUM/VITAMIN D (500/200) TAB PO (09:21)
[2018-08-25] MEDS: MUPIROCIN 2% 22 GM OINT TOP ×2 (09:21→21:24)
[2018-08-25] MEDS: SACCHAROMYCES BOULARDII 250 MG CAP GTB ×2 (09:21→21:18)
[2018-08-25] MEDS: ASPIRIN (EC) 81 MG TAB PO (09:21)
[2018-08-25] MEDS: QUETIAPINE 25 MG TAB GTB ×2 (09:22→21:18)
[2018-08-25] MEDS: VALPROIC ACID LIQUID CUP 250 MG/5 ML CUP PO (09:22)
[2018-08-25] MEDS: MEMANTINE 5 MG TAB GTB ×2 (09:23→21:17)
[2018-08-25] MEDS: FUROSEMIDE 20 MG TAB PO (09:23)
[2018-08-25] MEDS: METOPROLOL 25 MG TAB GTB ×2 (09:23→21:18)
[2018-08-25] MEDS: AMLODIPINE 5 MG TAB PO (09:23)
[2018-08-25] MEDS: AMIODARONE 200 MG TAB PO (09:23)
[2018-08-25] MEDS: VANCOMYCIN HCL 1.5 GM in SOD CHLORIDE 0.9% 250 ML IVPB (10:21)
[2018-08-25] MEDS: LISINOPRIL 20 MG TAB PO (15:24)
[2018-08-25] MEDS: morphine 2 MG INJ IV ×2 (16:47→21:21)
[2018-08-25] MEDS: VALPROIC ACID LIQUID CUP 250 MG/5 ML CUP GTB (21:17)
[2018-08-25] MEDS: TERAZOSIN 1 MG CAP GTB (21:18)
[2018-08-25] MEDS: AMIODARONE 200 MG TAB GTB (21:18)
[2018-08-26] MEDS: ACCUCHECK AT 2AM (Patients on SS coverage) XX (00:37)
[2018-08-26] MEDS: INSULIN ASPART [NOVOLOG] 3 ML PEN SC ×4 (00:37→17:53)
[2018-08-26] MEDS: LANSOPRAZOLE 30 MG CAP GTB (05:22)
[2018-08-26] MEDS: CEFEPIME 2GM/50 ML (PMX) 50 ML IVPB ×3 (05:22→21:38)
[2018-08-26] MEDS: INSULIN GLARGINE [LANTus] (100 UNITS/ML) SYG SC (08:28)
[2018-08-26] MEDS: ENOXAPARIN 30 MG/0.3 ML SYG SC (08:29)
[2018-08-26] MEDS: MUPIROCIN 2% 22 GM OINT TOP ×2 (08:30→21:39)
[2018-08-26] MEDS: COLLAGENASE 5 GM (UD JAR) TOP (08:30)
[2018-08-26] MEDS: BALSAM PERU/CASTOR OIL 60 GM TUBE TOP ×2 (08:30→21:39)
[2018-08-26] MEDS: VALPROIC ACID LIQUID CUP 250 MG/5 ML CUP PO (08:31)
[2018-08-26] MEDS: DAKINS 0.0125%(1/40) 473 ML SOLUTION TP (08:31)
[2018-08-26] MEDS: FUROSEMIDE 20 MG TAB PO (08:33)
[2018-08-26] MEDS: CALCIUM/VITAMIN D (500/200) TAB PO (08:34)
[2018-08-26] MEDS: QUETIAPINE 25 MG TAB GTB ×2 (08:34→21:34)
[2018-08-26] MEDS: MEMANTINE 5 MG TAB GTB ×2 (08:34→21:35)
[2018-08-26] MEDS: SACCHAROMYCES BOULARDII 250 MG CAP GTB ×2 (08:34→21:35)
[2018-08-26] MEDS: METOPROLOL 25 MG TAB GTB ×2 (08:35→21:00)
[2018-08-26] MEDS: ASPIRIN (EC) 81 MG TAB PO (08:35)
[2018-08-26] MEDS: AMIODARONE 200 MG TAB PO (08:35)
[2018-08-26] MEDS: AMLODIPINE 5 MG TAB PO (08:35)
[2018-08-26] MEDS: VANCOMYCIN HCL 1.5 GM in SOD CHLORIDE 0.9% 250 ML IVPB (12:42)
[2018-08-26] MEDS: morphine 2 MG INJ IV ×2 (14:09→22:40)
[2018-08-26] MEDS: LISINOPRIL 20 MG TAB PO (14:09)
[2018-08-26] MEDS: TERAZOSIN 1 MG CAP GTB (21:34)
[2018-08-26] MEDS: AMIODARONE 200 MG TAB GTB (21:34)
[2018-08-26] MEDS: VALPROIC ACID LIQUID CUP 250 MG/5 ML CUP GTB (21:35)
[2018-08-27] MEDS: INSULIN ASPART [NOVOLOG] 3 ML PEN SC ×4 (00:24→17:29)
[2018-08-27] MEDS: ACCUCHECK AT 2AM (Patients on SS coverage) XX (02:00)
[2018-08-27] MEDS: morphine 2 MG INJ IV ×2 (02:59→15:32)
[2018-08-27] MEDS: CEFEPIME 2GM/50 ML (PMX) 50 ML IVPB ×2 (05:00→15:31)
[2018-08-27] MEDS: LANSOPRAZOLE 30 MG CAP GTB (05:00)
[2018-08-27 07:12] LABS: CREATININE 0.51 mg/dl (0.61-1.24)
[2018-08-27 07:12] LABS: BLOOD UREA NITROGEN 25 mg/dl (7-20)
[2018-08-27] MEDS: ENOXAPARIN 30 MG/0.3 ML SYG SC (08:23)
[2018-08-27] MEDS: INSULIN GLARGINE [LANTus] (100 UNITS/ML) SYG SC (08:23)
[2018-08-27] MEDS: CALCIUM/VITAMIN D (500/200) TAB PO (08:24)
[2018-08-27] MEDS: FUROSEMIDE 20 MG TAB PO (08:24)
[2018-08-27] MEDS: VALPROIC ACID LIQUID CUP 250 MG/5 ML CUP PO (08:24)
[2018-08-27] MEDS: ASPIRIN (EC) 81 MG TAB PO (08:25)
[2018-08-27] MEDS: SACCHAROMYCES BOULARDII 250 MG CAP GTB (08:25)
[2018-08-27] MEDS: MEMANTINE 5 MG TAB GTB (08:25)
[2018-08-27] MEDS: QUETIAPINE 25 MG TAB GTB (08:25)
[2018-08-27] MEDS: METOPROLOL 25 MG TAB GTB (08:25)
[2018-08-27] MEDS: AMLODIPINE 5 MG TAB PO (08:26)
[2018-08-27] MEDS: AMIODARONE 200 MG TAB PO (08:26)
[2018-08-27] MEDS: DAKINS 0.0125%(1/40) 473 ML SOLUTION TP (08:27)
[2018-08-27] MEDS: MUPIROCIN 2% 22 GM OINT TOP (08:27)
[2018-08-27] MEDS: BALSAM PERU/CASTOR OIL 60 GM TUBE TOP (08:27)
[2018-08-27] MEDS: COLLAGENASE 5 GM (UD JAR) TOP (08:39)
[2018-08-27] MEDS: VANCOMYCIN HCL 1.5 GM in SOD CHLORIDE 0.9% 250 ML IVPB (12:47)
[2018-08-27] MEDS: LISINOPRIL 20 MG TAB PO (14:12)
[2018-08-27 18:24] LABS: ADD MAN DIFF? NO
[2018-08-27 18:25] LABS: WHITE BLOOD COUNT 13.6 10^3/ul (4.8-10.8)
[2018-08-27 18:25] LABS: ABNORMAL IP MESSAGE 1; BASOPHIL # 0.2 10^3/ul (0.0-0.1); BASOPHILS % 1.3 % (0.0-2.0); EOSINOPHILS # 0.4 10^3/ul (0.0-0.5); EOSINOPHILS % 3.2 % (0.0-7.0); HEMATOCRIT 28.9 % (42.0-52.0); HEMOGLOBIN 8.8 g/dl (14.0-18.0); LYMPHOCYTES # 1.6 10^3/ul (0.8-2.9); LYMPHOCYTES % 11.9 % (15.0-51.0); MEAN CORPUSCULAR HGB CONC 30.4 g/dl (32.0-37.0); MEAN CORPUSCULAR VOLUME 88.7 fl (82.0-101.0); MEAN PLATELET VOLUME 11.1 fl (7.4-10.4); MONOCYTE # 1.2 10^3/ul (0.3-0.9); MONOCYTES % 9.1 % (0.0-11.0); NEUTROPHIL # 9.2 10^3/ul (1.6-7.5); NEUTROPHILS % 67.6 % (39.0-77.0); NUCLEATED RED BLOOD CELLS% 0.2 /100WBC (0.0-0.0); PLATELET COUNT 435 10^3/UL (140-415); POSITIVE DIFF @See below; RED BLOOD COUNT 3.26 10^6/ul (4.70-6.10); RED CELL DISTRIBUTION WIDTH 16.4 % (11.5-14.5)
[2018-08-27 19:34] LABS: ANISOCYTOSIS 2+ (0-0); BAND NEUTROPHILS #M 0.4 10^3/ul (0.0-0.6); BAND NEUTROPHILS % (M) 3 % (0-4); BASOPHIL #M 0.2 10^3/ul (0.0-0.0); BASOPHILS % (M) 2 % (0-2); EOSINOPHILS % (M) 3 % (0-7); GIANT THROMBO% (M) 2 % (0-0); LYMPHOCYTES #M 0.6 10^3/ul (0.8-2.9); LYMPHOCYTES % (M) 5 % (15-51); METAMYELOCYTES #M 0.1 10^3/ul (0.0-0.0); METAMYELOCYTES %M 1 % (0-0); MICROCYTOSIS 2+ (0-0); MONOCYTE #M 1.3 10^3/ul (0.3-0.9); MONOCYTES % (M) 10 % (0-11); MYELOCYTES #M 0.6 10^3/ul (0.0-0.0); MYELOCYTES % (M) 5 % (0-0); PLATELET ESTIMATE NORMAL; POLYCHROMASIA 2+ (0-0); REACTIVE LYMPHOCYTES #M 0.1 10^3/ul (0.0-0.0); REACTIVE LYMPHOCYTES% (M) 1 % (0-0); SEG NEUT #M 9.6 10^3/ul (1.6-7.5); SEGMENTED NEUTROPHILS (M) % 70 % (39-77); SMUDGE%M 9 % (0-0)
== END 2018-08-27 22:05 | DRG 853 ==
LOC: TEL 22:41 → E/R 19:55 → 2NE 08-18 17:38 → PP2 08-18 17:48
PROC: 0KBW0ZZ Excision of Left Foot Muscle, Open Approach (ICD-10-PCS; principal; 2018-08-21 19:30)
PROC: 0JBR0ZZ Excision of Left Foot Subcutaneous Tissue and Fascia, Open Approach (ICD-10-PCS; 2018-08-21 19:30)
PROC: 0JBR0ZZ Excision of Left Foot Subcutaneous Tissue and Fascia, Open Approach (ICD-10-PCS; 2018-08-21 19:30)
PROC: 0JBQ0ZZ Excision of Right Foot Subcutaneous Tissue and Fascia, Open Approach (ICD-10-PCS; 2018-08-21 19:30)
PROC: 0QBL0ZZ Excision of Right Tarsal, Open Approach (ICD-10-PCS; 2018-08-21 19:30)
PROC: 0QBL0ZZ Excision of Right Tarsal, Open Approach (ICD-10-PCS; 2018-08-21 19:30)
PROC: 0KBV0ZZ Excision of Right Foot Muscle, Open Approach (ICD-10-PCS; 2018-08-21 19:30)
PROC: 0QBN0ZZ Excision of Right Metatarsal, Open Approach (ICD-10-PCS; 2018-08-21 19:30)
PROC: 0JBQ0ZZ Excision of Right Foot Subcutaneous Tissue and Fascia, Open Approach (ICD-10-PCS; 2018-08-21 19:30)
DX: A41.9 Sepsis, unspecified organism (principal); L89.153 Pressure ulcer of sacral region, stage 3; J69.0 Pneumonitis due to inhalation of food and vomit; J96.01 Acute respiratory failure with hypoxia; R53.2 Functional quadriplegia; L89.894 Pressure ulcer of other site, stage 4; L89.614 Pressure ulcer of right heel, stage 4; E44.0 Moderate protein-calorie malnutrition; L03.115 Cellulitis of right lower limb; M86.171 Other acute osteomyelitis, right ankle and foot; E11.52 Type 2 diabetes mellitus with diabetic peripheral angiopathy with gangrene; E11.40 Type 2 diabetes mellitus with diabetic neuropathy, unspecified; I48.0 Paroxysmal atrial fibrillation; R13.10 Dysphagia, unspecified; D64.9 Anemia, unspecified; F03.90 Unspecified dementia, unspecified severity, without behavioral disturbance, psychotic disturbance, mood disturbance, and anxiety; G40.909 Epilepsy, unspecified, not intractable, without status epilepticus; F41.9 Anxiety disorder, unspecified; K21.9 Gastro-esophageal reflux disease without esophagitis; I10 Essential (primary) hypertension; N40.0 Benign prostatic hyperplasia without lower urinary tract symptoms; B95.62 Methicillin resistant Staphylococcus aureus infection as the cause of diseases classified elsewhere; E11.42 Type 2 diabetes mellitus with diabetic polyneuropathy; Z74.01 Bed confinement status; M24.562 Contracture, left knee; M24.561 Contracture, right knee; M24.559 Contracture, unspecified hip; Z93.1 Gastrostomy status; Z66 Do not resuscitate
CPT/HCPCS: 36415; 71045; 73630; 73630-LT; 80048; 80053; 80061; 80164; 80202; 81001; 82550; 82553; 82565; 82962; 83036; 83605; 83735; 84443; 84484; 84520; 85025; 85049; 85610; 85651; 85670; 85730; 86140; 87040-91; 87070; 87075; 87081; 87086; 87102; 88304; 88311; 93005; 93308; 93922; 96361; 96365; 96375; 99291-25